=== PATIENT | female | born 1980 | race African-American/Black ===

== ENCOUNTER 2017-01-17 23:48 | Inpatient (IN) | payer OTHER ==
[2017-01-18 01:47] VITALS: BMI 28.0
--- NOTE | 2017-01-18 01:54 | HP ---
COWS - Scale Resting Pulse: 0= [place] 80 or Below Sweatin=Flushed/Facial Moisture Restless Observation: 3= Extraneous Movement Pupil Size: 2= Moderately Dilated Bone or Joint Aches: 2= Severe Diffuse Aches Runny Nose/ Eye Tearin= Runny Nose/Eyes GI Upset > 30mins: 3= Vomiting/Diarrhea Tremor Observation: 2= Slight Tremor Visible Yawning Observation: 2= >3x During Session Anxiety or Irritability: 2=Irritable/Anxious Goose Flesh Skin: 0=Smooth Skin COWS Score: 20 CIWA Score - CIWA Score Nausea/Vomitin Muscle Tremors: 3 Anxiety: 3 Agitation: 3 Paroxysmal Sweats: 2 Orientation: 0-Oriented Tacttile Disturbances: 2-Mild Itch/Numbness/Burn Auditory Disturbances: 2-Mild Harshness/Frighten Visual Disturbances: 2-Mild Sensitivity Headache: 2-Mild CIWA-Ar Total Score: 22 Admission ROS BHS - HPI Chief Complaint: i need help to stop using heroin,alcohol,xanax,marijuana Allergies/Adverse Reactions: Allergies Allergy/AdvReac Type Severity Reaction Status Date / Time No Known Allergies Allergy Verified 01/18/17 01:37 History of Present Illness: this 36 years old female with heroin,alcohol,xanax,marijuana dependence,seeking detox,last treatment in [place] 2005 hepatitis c nicotine dependence longest sobriety 5 years Exam Limitations: No Limitations - Ebola screening Have you traveled outside of the country in the last 21 days: No (N) Have you had contact with anyone from an Ebola affected area: No Do you have a fever: No - Review of Systems Constitutional: Chills, Diaphoresis, Loss of Appetite, Malaise, Night Sweats, Changes in sleep, Weakness EENT: reports: Nose Congestion Respiratory: reports: No Symptoms reported Cardiac: reports: No Symptoms Reported GI: reports: Diarrhea, Nausea, Vomiting, Abdominal cramping : reports: No Symptoms Reported Musculoskeletal: reports: Back Pain, Joint Pain, Muscle Pain Integumentary: reports: Dryness Neuro: reports: No Symptoms reported Endocrine: reports: No Symptoms Reported Hematology: reports: No Symptoms Reported Psychiatric: reports: No Sypmtoms Reported, Judgement Intact, Mood/Affect Appropiate, Anxious (insomnia) Patient History - Patient Medical History Hx Anemia: No Hx Asthma: No Hx Chronic Obstructive Pulmonary Disease (COPD): No Hx Cancer: No Hx Cardiac Disorders: No Hx Hypertension: No Hx Hypercholesterolemia: No Hx Pacemaker: No HX Cerebrovascular Accident: No Hx Seizures: No Hx Dementia: No Hx Diabetes: No Hx Gastrointestinal Disorders: No Hx Liver Disease: No Hx Genitourinary Disorders: No Hx Sexually Transmitted Disorders: No Hx Renal Disease (ESRD): No Hx Thyroid Disease: No Hx Human Immunodeficiency Virus (HIV): No (last in 01/11 negative) Hx Hepatitis C: Yes (no treatment) Hx Depression: Yes Hx Suicide Attempt: No Hx Bipolar Disorder: No Hx Schizophrenia: No Other Medical History: no suicidal,no homicidal - Patient Surgical History Past Surgical History: Yes Hx Neurologic Surgery: No Hx Cataract Extraction: No Hx Cardiac Surgery: No Hx Lung Surgery: No Hx Breast Surgery: No Hx Breast Biopsy: No Hx Abdominal Surgery: No Hx Appendectomy: No Hx Cholecystectomy: No Hx Genitourinary Surgery: No Hx Section: Yes (2 last 12) Hx Orthopedic Surgery: No Hx Hysterectomy: No Anesthesia Reaction: No - PPD History Previous Implant?: Yes Documented Results: Positive w/o proof Implanted On Prior R Admission?: No PPD to be Administered?: No - Reproductive History Patient is a Female of Child Bearing Age (11 -55 yrs old): Yes Last Menstrual Period: 12/27/16 Patient : No - Smoking Cessation Smoking history: Current every day smoker Have you smoked in the past 12 months: Yes Aproximately how many cigarettes per day: 10 Hx Chewing Tobacco Use: No Initiated information on smoking cessation: Yes 'Breaking Loose' booklet given: 01/18/17 - Substances Abused Alcohol Route: Oral Frequency: Daily Amount used: 6 cans Age of first use: 13 Date of Last Use: 01/17/17 Heroin Route: Injection Frequency: Daily Amount used: 10 bags Age of first use: 26 Date of Last Use: 01/17/17 Alprazolam (Xanax) Route: Oral Frequency: Daily Amount used: 3-4 pills Age of first use: 17 Date of Last Use: 01/15/17 Family Disease History - Family Disease History Family Disease History: Other: Father (alcohol,), Mother (mental problem ) Admission Physical Exam BHS - Vital Signs Vital Signs: Vital Signs - 24 hr 01/18/17 01:42 Temperature 98.7 F Pulse Rate 78 Respiratory 20 Rate Blood Pressure 115/70 - Physical General Appearance: Yes: Moderate Distress, Tremorous, Irritable, Sweating, Anxious HEENTM: Yes: Normal ENT Inspection, Normal Voice, HERNANDEZ, Pharynx Normal Respiratory: Yes: Lungs Clear, Normal Breath Sounds, No Respiratory Distress Neck: Yes: Within Normal Limits, Supple, Trachea in good position Breast: Yes: Breast Exam Deferred Cardiology: Yes: Within Normal Limits, Regular Rhythm, Regular Rate, S1, S2 Abdominal: Yes: Within Normal Limits, Normal Bowel Sounds, Non Tender, Flat, Soft Genitourinary: Yes: Within Normal Limits Back: Yes: Muscle Spasm Musculoskeletal: Yes: full range of Motion, Back pain, Joint Stiffness, Muscle Pain Extremities: Yes: Tremors Neurological: Yes: skeins yarn examiner II-XII NML intact, Fully Oriented, Alert, Motor Strength 5/5 Integumentary: Yes: Dry Lymphatic: Yes: Within Normal Limits - Diagnostic (1) Opioid dependence with withdrawal Current Visit: Yes Status: Acute (2) Alcohol dependence with uncomplicated withdrawal Current Visit: Yes Status: Acute (3) Uncomplicated sedative, hypnotic or anxiolytic withdrawal Current Visit: Yes Status: Acute (4) Cannabis dependence Current Visit: Yes Status: Acute (5) Hepatitis C Current Visit: Yes Status: Acute (6) Nicotine dependence Current Visit: Yes Status: Acute (7) Insomnia secondary to anxiety Current Visit: Yes Status: Acute (8) Positive PPD Current Visit: Yes Status: Acute Cleared for Admission [facility] - Detox or Rehab [facility] Level of Care: Medically Managed Detox Regimen/Protocol: Methadone/Librium [facility] Breath Alcohol Content Breath Alcohol Content: 0 Urine Pregancy Test - Result Urine Test Results: Negative- NO Line Present Urine Drug Screen - Results Drug Screen Negative: No Urine Drug Screen Results: THC-Marijuana, OPI-Opiates, BZO-Benzodiazepines, MTD- Methadone
[2017-01-18] MEDS ORDERED: MENTHOL/PHENOL 1 EACH UD MM PRN (02:05)
[2017-01-18] MEDS ORDERED: METHADONE HCL 10 MG TABLET (FOR DETOX USE ONLY) PO ONE ×5 (02:05→22:00)
[2017-01-18] MEDS ORDERED: P-EPHED 60MG/TRIPROLIDI 2.5MG TABLET PO PRN (02:05)
[2017-01-18] MEDS ORDERED: MAGNESIUM CITRATE 300 ML BOTTLE PO PRN (02:05)
[2017-01-18] MEDS ORDERED: ACETAMINOPHEN 325 MG TABLET (FP) PO PRN (02:05)
[2017-01-18] MEDS ORDERED: LOPERAMIDE HCL 2 MG CAPSULE PO PRN (02:05)
[2017-01-18] MEDS ORDERED: IBUPROFEN 400 MG TABLET (FP) PO PRN (02:05)
[2017-01-18] MEDS ORDERED: MAG HYDROX/AL HYDROX/SIMETH 30 ML UNIT-DOSE CUP PO PRN (02:05)
[2017-01-18] MEDS ORDERED: MAGNESIUM HYDROX 2400MG/30ML ORAL SUSPENSION 30 ML CUP PO PRN (02:05)
[2017-01-18] MEDS ORDERED: guaiFENesin/D-METHORPHAN HB 10 ML UNIT-DOSE CUPS PO PRN (02:05)
[2017-01-18] MEDS ORDERED: chlordiazePOXIDE HCL 25 MG CAPSULE PO ONE (02:05)
[2017-01-18] MEDS ORDERED: chlordiazePOXIDE HCL 25 MG CAPSULE PO PRN ×2 (02:05→02:14)
[2017-01-18] MEDS ORDERED: chlordiazePOXIDE HCL 25 MG CAPSULE PO SCH (05:00)
[2017-01-18] MEDS: chlordiazePOXIDE HCL 25 MG CAPSULE PO SCH ×4 (05:20→22:49)
--- NOTE | 2017-01-18 10:18 | PN ---
S Progress Note Note: patient was admitted for opioid dependence,alcohol dependence and sedative dependence medically manage for methadone and librium regimen
[2017-01-18] MEDS: hydrOXYzine PAMOATE 25 MG CAPSULE (FP) PO PRN (10:21)
[2017-01-18] MEDS: PRENATAL VITAMINS W/ FOLIC ACID TABLET (FP) PO SCH (10:21)
[2017-01-18] MEDS: NICOTINE 21 MG/24 HOURS TOPICAL PATCH TD SCH (10:22)
[2017-01-18] MEDS ORDERED: FLU VACCINE QUAD 60 MCG/0.5 ML (MDV 17-18) IM ONE ×2 (12:00)
--- NOTE | 2017-01-18 15:17 | CONSULT ---
[facility] Psychiatric Consult - Data Date of interview: 01/18/17 Admission source: [facility] Identifying data: First admission to [facility] for this 36 y/o AA female seeking detox treatment on for alcohol,cocaine,heroin and marihuana.Patient is single,mother of two,homeless,unemployed and supported on welfare. Substance Abuse History: Discussed with the patient.Addictions are confirmed.Smoking history: Current every day smoker. Have you smoked in the past 12 months: Yes. Aproximately how many cigarettes per day: 10. Hx Chewing Tobacco Use: No. Initiated information on smoking cessation: Yes. 'Breaking Loose' booklet given: 01/18/17. - Substances Abused. Alcohol. Route: Oral. Frequency: Daily. Amount used: 6 cans. Age of first use: 13. Date of Last Use: 01/17/17. Heroin. Route: Injection. Frequency: Daily. Amount used: 10 bags. Age of first use: 26. Date of Last Use: 01/17/17. Alprazolam (Xanax). Route: Oral. Frequency: Daily. Amount used: 3-4 pills. Age of first use: 17. Date of Last Use: 01/15/17 Medical History: Hepatitis C. Psychiatric History: No reported history of psychiatric hospitalizations.Diagnoses endorsesd : MDD,Anxiety Disorder and PTSD.Patient reports that she dropped out of OPD care " a little over 18 months ago." Used to be on effexor,adderall,xanax and gabapentin.Ms Pizano denies hstory of suicide attempts. Physical/Sexual Abuse/Trauma History: Not discussed (patient's wish). Additional Comment: Urine Drug Screen Results: THC-Marijuana, OPI-Opiates, BZO- Benzodiazepines, MTD-Methadone.Noted. Mental Status Exam - Mental Status Exam Alert and Oriented to: Time, Place, Person Cognitive Function: Good Patient Appearance: Well Groomed Mood: Hopeful, Euthymic Affect: Appropriate, Normal Range Patient Behavior: Appropriate, Cooperative Speech Pattern: Clear Voice Loudness: Normal Thought Process: Intact, Goal Oriented Thought Disorder: Not Present Hallucinations: Denies Suicidal Ideation: Denies Homicidal Ideation: Denies Insight/Judgement: Poor Sleep: Well Appetite: Good Muscle strength/Tone: Normal Gait/Station: Normal Psychiatric Findings - Problem List ([place] 1, 2,3) (1) Alcohol dependence with uncomplicated withdrawal Current Visit: Yes Status: Acute (2) Cannabis dependence Current Visit: Yes Status: Acute (3) Opioid dependence with withdrawal Current Visit: Yes Status: Acute (4) Uncomplicated sedative, hypnotic or anxiolytic withdrawal Current Visit: Yes Status: Acute (5) Nicotine dependence Current Visit: Yes Status: Acute (6) Substance induced mood disorder Current Visit: Yes Status: Acute (7) Hepatitis C Current Visit: Yes Status: Acute (8) Positive PPD Current Visit: Yes Status: Acute - Initial Treatment Plan Initial Treatment Plan: Psychoeducation.Detoxification.Observation.
[2017-01-18 16:09] LABS: URINE APPEARANCE SLCLOUDY; URINE BILIRUBIN NEGATIVE (NEGATIVE); URINE BLOOD NEGATIVE (NEGATIVE); URINE COLOR YELLOW; URINE GLUCOSE (UA) NEGATIVE (NEGATIVE); URINE KETONE NEGATIVE (NEGATIVE); URINE NITRITE NEGATIVE (NEGATIVE); URINE PROTEIN NEGATIVE (NEGATIVE)
[2017-01-18 20:13] LABS: URINE LEUK ESTERASE Negative (NEGATIVE)
--- NOTE | 2017-01-18 20:26 | EKG ---
Test Reason : Blood Pressure : / mmHG Vent. Rate : 073 BPM Atrial Rate : 073 BPM P-R Int : 188 ms QRS Dur : 080 ms QT Int : 398 ms P-R-T Axes : 047 077 054 degrees QTc Int : 438 ms NORMAL SINUS RHYTHM NORMAL ECG NO PREVIOUS ECGS AVAILABLE Confirmed by CHANDRAKANT REAL MD ([id number]) on 01/18/2017 8:26:28 PM Referred By: Confirmed By:CHANDRAKANT REAL MD
[2017-01-18] MEDS: THIAMINE HCL 100 MG TABLET (FP) PO SCH (22:49)
[2017-01-19] MEDS ORDERED: chlordiazePOXIDE HCL 25 MG CAPSULE PO SCH (05:00)
[2017-01-19] MEDS: chlordiazePOXIDE HCL 25 MG CAPSULE PO SCH ×4 (05:19→22:43)
[2017-01-19 09:55] LABS: MCH 28.5 pg (25.7-33.7); MCHC 33.3 g/dl (32.0-36.0); MEAN CELL VOLUME 85.8 fl (80-96); MEAN PLT VOLUME 8.5 fl (7.5-11.1); PLATELET COUNT 184 K/MM3 (134-434); RDW 15.6 % (11.6-15.6); WHITE BLOOD COUNT 5.3 K/mm3 (4.0-10.0)
[2017-01-19] MEDS ORDERED: METHADONE HCL 5 MG TABLET (FOR DETOX USE ONLY) PO SCH ×2 (10:00)
[2017-01-19 10:06] LABS: ALBUMIN 2.9 g/dl (3.4-5.0); ANION GAP 7 (8-16); CALCIUM 8.1 mg/dL (8.5-10.1); CO2 26 mmol/L (21-32); CREATININE 0.6 mg/dL (0.55-1.02); GLUCOSE,RANDOM 93 mg/dL (74-106); SGOT/AST 16 U/L (15-37); SGPT/ALT 47 U/L (12-78)
[2017-01-19 10:08] LABS: ALK PHOS 186 U/L (45-117); BILIRUBIN,TOTAL 0.6 mg/dL (0.2-1.0); TOT PROT 6.3 g/dl (6.4-8.2)
[2017-01-19 10:12] LABS: SICKLE CELL SCREEN NEGATIVE (NEGATIVE)
[2017-01-19] MEDS: PRENATAL VITAMINS W/ FOLIC ACID TABLET (FP) PO SCH (10:34)
[2017-01-19] MEDS: NICOTINE 21 MG/24 HOURS TOPICAL PATCH TD SCH (10:34)
--- NOTE | 2017-01-19 11:28 | PN ---
S CIWA - CIWA Score Nausea/Vomitin Muscle Tremors: 3 Anxiety: 3 Agitation: 2 Paroxysmal Sweats: 1-Minimal Palms Moist Orientation: 0-Oriented Tacttile Disturbances: 1-Very Mild Itch/Numbness Auditory Disturbances: 1-Very Mild Visual Disturbances: 0-None Headache: 2-Mild CIWA-Ar Total Score: 16 BHS COWS - Scale Resting Pulse: 0= [place] 80 or Below Sweatin= Chills/Flushing Restless Observation: 3= Extraneous Movement Pupil Size: 1= Pupils >than Normal Bone or Joint Aches: 2= Severe Diffuse Aches Runny Nose/ Eye Tearin= Nasal Congestion GI Upset > 30mins: 2= Nausea/Diarrhea Tremor Observation of Outstretched Hands: 2= Slight Tremor Visible Yawning Observation: 1= 1-2x During Session Anxiety or Irritability: 2=Irritable/Anxious Goose Flesh Skin: 0=Smooth Skin COWS Score: 15 BHS Progress Note (SOAP) Subjective: alert,irritable,anxious,interrupted sleep,tremor Objective: 01/19/17 11:26 Vital Signs Temperature 96.9 F L 01/19/17 10:00 Pulse Rate 72 01/19/17 10:00 Respiratory Rate 16 01/19/17 10:00 Blood Pressure 120/70 01/19/17 10:00 O2 Sat by Pulse Oximetry (%) Laboratory Last Values WBC 5.3 K/mm3 (4.0-10.0) 01/19/17 07:15 RBC 4.07 M/mm3 (3.60-5.2) 01/19/17 07:15 Hgb 11.6 GM/dL (10.7-15.3) 01/19/17 07:15 Hct 34.9 % (32.4-45.2) 01/19/17 07:15 MCV 85.8 fl (80-96) 01/19/17 07:15 MCH 28.5 pg (25.7-33.7) 01/19/17 07:15 MCHC 33.3 g/dl (32.0-36.0) 01/19/17 07:15 RDW 15.6 % (11.6-15.6) 01/19/17 07:15 Plt Count 184 K/MM3 (134-434) 01/19/17 07:15 MPV 8.5 fl (7.5-11.1) 01/19/17 07:15 Sickle Cell Screen Negative (NEGATIVE) 01/19/17 07:15 Sodium 142 mmol/L (136-145) 01/19/17 07:15 Potassium 4.0 mmol/L (3.5-5.1) 01/19/17 07:15 Chloride 109 mmol/L (98-107) H 01/19/17 07:15 Carbon Dioxide 26 mmol/L (21-32) 01/19/17 07:15 Anion Gap 7 (8-16) L 01/19/17 07:15 BUN 8 mg/dL (7-18) 01/19/17 07:15 Creatinine 0.6 mg/dL (0.55-1.02) 01/19/17 07:15 Creat Clearance w eGFR > 60 (>60) 01/19/17 07:15 Random Glucose 93 mg/dL (74-106) 01/19/17 07:15 Calcium 8.1 mg/dL (8.5-10.1) L 01/19/17 07:15 Total Bilirubin 0.6 mg/dL (0.2-1.0) 01/19/17 07:15 AST 16 U/L (15-37) 01/19/17 07:15 ALT 47 U/L (12-78) 01/19/17 07:15 Alkaline Phosphatase 186 U/L (45-117) H 01/19/17 07:15 Total Protein 6.3 g/dl (6.4-8.2) L 01/19/17 07:15 Albumin 2.9 g/dl (3.4-5.0) L 01/19/17 07:15 Urine Color Yellow 01/18/17 10:30 Urine Appearance Slcloudy 01/18/17 10:30 Urine pH 7.0 (5.0-8.0) 01/18/17 10:30 Ur Specific [place] 1.015 (1.005-1.025) 01/18/17 10:30 Urine Protein Negative (NEGATIVE) 01/18/17 10:30 Urine Glucose (UA) Negative (NEGATIVE) 01/18/17 10:30 Urine Ketones Negative (NEGATIVE) 01/18/17 10:30 Urine Blood Negative (NEGATIVE) 01/18/17 10:30 Urine Nitrite Negative (NEGATIVE) 01/18/17 10:30 Urine Bilirubin Negative (NEGATIVE) 01/18/17 10:30 Urine Urobilinogen 2.0 mg/dL (0.2-1.0) H 01/18/17 10:30 Ur Leukocyte Esterase Negative (NEGATIVE) 01/18/17 10:30 RPR Titer Nonreactive (NONREACTIVE) 01/19/17 07:15 Assessment: 01/19/17 11:27 withdrawal symptom Plan: continue detox
[2017-01-19] MEDS: diphenhydrAMINE HCL 50 MG CAPSULE PO PRN (22:43)
[2017-01-19] MEDS: THIAMINE HCL 100 MG TABLET (FP) PO SCH (22:43)
[2017-01-20] MEDS ORDERED: chlordiazePOXIDE 5 MG CAPSULE PO SCH (05:00)
[2017-01-20] MEDS: chlordiazePOXIDE 5 MG CAPSULE PO SCH ×4 (07:36→22:31)
[2017-01-20] MEDS ORDERED: METHADONE HCL 5 MG TABLET (FOR DETOX USE ONLY) PO SCH (10:00)
--- NOTE | 2017-01-20 10:17 | PN ---
S CIWA - CIWA Score Nausea/Vomitin Muscle Tremors: 3 Anxiety: 3 Agitation: 2 Paroxysmal Sweats: 1-Minimal Palms Moist Orientation: 0-Oriented Tacttile Disturbances: 1-Very Mild Itch/Numbness Auditory Disturbances: 1-Very Mild Visual Disturbances: 0-None Headache: 2-Mild CIWA-Ar Total Score: 16 BHS COWS - Scale Resting Pulse: 0= [place] 80 or Below Sweatin= Chills/Flushing Restless Observation: 3= Extraneous Movement Pupil Size: 1= Pupils >than Normal Bone or Joint Aches: 2= Severe Diffuse Aches Runny Nose/ Eye Tearin= Nasal Congestion GI Upset > 30mins: 3= Vomiting/Diarrhea Tremor Observation of Outstretched Hands: 2= Slight Tremor Visible Yawning Observation: 1= 1-2x During Session Anxiety or Irritability: 2=Irritable/Anxious Goose Flesh Skin: 0=Smooth Skin COWS Score: 16 BHS Progress Note (SOAP) Subjective: alert,irritable,anxious,interrupted sleep,pain in the body and back Objective: 01/20/17 10:16 Vital Signs Temperature 96.6 F L 01/20/17 09:55 Pulse Rate 65 01/20/17 09:55 Respiratory Rate 18 01/20/17 09:55 Blood Pressure 117/66 01/20/17 09:55 O2 Sat by Pulse Oximetry (%) Laboratory Last Values WBC 5.3 K/mm3 (4.0-10.0) 01/19/17 07:15 RBC 4.07 M/mm3 (3.60-5.2) 01/19/17 07:15 Hgb 11.6 GM/dL (10.7-15.3) 01/19/17 07:15 Hct 34.9 % (32.4-45.2) 01/19/17 07:15 MCV 85.8 fl (80-96) 01/19/17 07:15 MCH 28.5 pg (25.7-33.7) 01/19/17 07:15 MCHC 33.3 g/dl (32.0-36.0) 01/19/17 07:15 RDW 15.6 % (11.6-15.6) 01/19/17 07:15 Plt Count 184 K/MM3 (134-434) 01/19/17 07:15 MPV 8.5 fl (7.5-11.1) 01/19/17 07:15 Sickle Cell Screen Negative (NEGATIVE) 01/19/17 07:15 Sodium 142 mmol/L (136-145) 01/19/17 07:15 Potassium 4.0 mmol/L (3.5-5.1) 01/19/17 07:15 Chloride 109 mmol/L (98-107) H 01/19/17 07:15 Carbon Dioxide 26 mmol/L (21-32) 01/19/17 07:15 Anion Gap 7 (8-16) L 01/19/17 07:15 BUN 8 mg/dL (7-18) 01/19/17 07:15 Creatinine 0.6 mg/dL (0.55-1.02) 01/19/17 07:15 Creat Clearance w eGFR > 60 (>60) 01/19/17 07:15 Random Glucose 93 mg/dL (74-106) 01/19/17 07:15 Calcium 8.1 mg/dL (8.5-10.1) L 01/19/17 07:15 Total Bilirubin 0.6 mg/dL (0.2-1.0) 01/19/17 07:15 AST 16 U/L (15-37) 01/19/17 07:15 ALT 47 U/L (12-78) 01/19/17 07:15 Alkaline Phosphatase 186 U/L (45-117) H 01/19/17 07:15 Total Protein 6.3 g/dl (6.4-8.2) L 01/19/17 07:15 Albumin 2.9 g/dl (3.4-5.0) L 01/19/17 07:15 Urine Color Yellow 01/18/17 10:30 Urine Appearance Slcloudy 01/18/17 10:30 Urine pH 7.0 (5.0-8.0) 01/18/17 10:30 Ur Specific [place] 1.015 (1.005-1.025) 01/18/17 10:30 Urine Protein Negative (NEGATIVE) 01/18/17 10:30 Urine Glucose (UA) Negative (NEGATIVE) 01/18/17 10:30 Urine Ketones Negative (NEGATIVE) 01/18/17 10:30 Urine Blood Negative (NEGATIVE) 01/18/17 10:30 Urine Nitrite Negative (NEGATIVE) 01/18/17 10:30 Urine Bilirubin Negative (NEGATIVE) 01/18/17 10:30 Urine Urobilinogen 2.0 mg/dL (0.2-1.0) H 01/18/17 10:30 Ur Leukocyte Esterase Negative (NEGATIVE) 01/18/17 10:30 RPR Titer Nonreactive (NONREACTIVE) 01/19/17 07:15 Assessment: 01/20/17 10:17 withdrawal symptom Plan: continue detox
[2017-01-20] MEDS: NICOTINE 21 MG/24 HOURS TOPICAL PATCH TD SCH (10:30)
[2017-01-20] MEDS: PRENATAL VITAMINS W/ FOLIC ACID TABLET (FP) PO SCH (10:30)
[2017-01-20] MEDS: METHADONE HCL 5 MG TABLET (FOR DETOX USE ONLY) PO SCH (10:30)
[2017-01-20] MEDS: NICOTINE POLACRILEX 2 MG GUM BC PRN ×2 (19:42→22:32)
[2017-01-20] MEDS: THIAMINE HCL 100 MG TABLET (FP) PO SCH (22:31)
[2017-01-20] MEDS: diphenhydrAMINE HCL 50 MG CAPSULE PO PRN (22:31)
[2017-01-21] MEDS ORDERED: chlordiazePOXIDE HCL 10 MG CAPSULE PO SCH (05:00)
[2017-01-21] MEDS: chlordiazePOXIDE HCL 10 MG CAPSULE PO SCH ×4 (05:35→22:31)
[2017-01-21] MEDS: NICOTINE 21 MG/24 HOURS TOPICAL PATCH TD SCH (10:27)
[2017-01-21] MEDS: PRENATAL VITAMINS W/ FOLIC ACID TABLET (FP) PO SCH (10:27)
[2017-01-21] MEDS: METHADONE HCL 5 MG TABLET (FOR DETOX USE ONLY) PO SCH (10:27)
--- NOTE | 2017-01-21 11:12 | PN ---
BHS Progress Note (SOAP) Subjective: ALERT,IRRITABLE,ANXIOUS,INTERRUPTED SLEEP,PAIN IN THE BODY Objective: 01/21/17 11:11 Vital Signs Temperature 98.6 F 01/21/17 10:00 Pulse Rate 76 01/21/17 10:00 Respiratory Rate 20 01/21/17 10:00 Blood Pressure 111/55 01/21/17 10:00 O2 Sat by Pulse Oximetry (%) Assessment: 01/21/17 11:12 WITHDRAWAL SYMPTOM Plan: CONTINUE DETOX
[2017-01-21] MEDS: NICOTINE POLACRILEX 2 MG GUM BC PRN ×2 (18:13→22:33)
[2017-01-21] MEDS: diphenhydrAMINE HCL 50 MG CAPSULE PO PRN (22:30)
[2017-01-21] MEDS: THIAMINE HCL 100 MG TABLET (FP) PO SCH (22:30)
[2017-01-22] MEDS ORDERED: METHADONE HCL 10 MG TABLET (FOR DETOX USE ONLY) PO SCH ×2 (10:00)
[2017-01-22] MEDS: NICOTINE 21 MG/24 HOURS TOPICAL PATCH TD SCH (10:19)
[2017-01-22] MEDS: PRENATAL VITAMINS W/ FOLIC ACID TABLET (FP) PO SCH (10:19)
[2017-01-22] MEDS: hydrOXYzine PAMOATE 25 MG CAPSULE (FP) PO PRN (10:20)
--- NOTE | 2017-01-22 11:33 | PN ---
S Progress Note (SOAP) Subjective: ALERT,IRRITABLE,INTERRUPTED SLEEP Objective: 01/22/17 11:32 Vital Signs Temperature 96.7 F L 01/22/17 10:18 Pulse Rate 82 01/22/17 10:18 Respiratory Rate 18 01/22/17 10:18 Blood Pressure 109/64 01/22/17 10:18 O2 Sat by Pulse Oximetry (%) Assessment: 01/22/17 11:32 WITHDRAWAL SYMPTOM Plan: CONTINUE DETOX,DISCHARGE IN AM
[2017-01-22] MEDS: NICOTINE POLACRILEX 2 MG GUM BC PRN ×2 (17:29→22:15)
[2017-01-22] MEDS: diphenhydrAMINE HCL 50 MG CAPSULE PO PRN (22:14)
[2017-01-22] MEDS: THIAMINE HCL 100 MG TABLET (FP) PO SCH (22:15)
[2017-01-23] MEDS ORDERED: METHADONE HCL 10 MG TABLET (FOR DETOX USE ONLY) PO SCH ×2 (06:00)
[2017-01-23] MEDS ORDERED: METHADONE HCL 5 MG TABLET (FOR DETOX USE ONLY) PO SCH (06:30)
[2017-01-23] MEDS: PRENATAL VITAMINS W/ FOLIC ACID TABLET (FP) PO SCH (10:13)
[2017-01-23] MEDS: NICOTINE 21 MG/24 HOURS TOPICAL PATCH TD SCH (10:13)
[2017-01-23] MEDS: NICOTINE POLACRILEX 2 MG GUM BC PRN (10:15)
--- NOTE | 2017-01-23 10:28 | DS ---
[facility] Detox Discharge Summary Admission Date: 01/18/17 Discharge Date: 01/23/17 - History Present History: Alcohol Dependence, Cocaine Dependence, Opioid Dependence, Sedative Dependence Additional Comments: FOLLOW UP WITH AFTER CARE PROGRAM ARRANGEMENT Pertinent Past History: HEPATITIS C NICOTINE DEPENDENCE ANXIETY,INSOMNIA POSITIVE PPD - Physical Exam Results Vital Signs: Vital Signs Temperature 98.1 F 01/23/17 06:26 Pulse Rate 71 01/23/17 06:26 Respiratory Rate 18 01/23/17 06:26 Blood Pressure 108/60 01/23/17 06:26 O2 Sat by Pulse Oximetry (%) Pertinent Admission Physical Exam Findings: WITHDRAWAL FINDING - Treatment Hospital Course: Detox Protocol Followed, Detoxed Safely, Responded well, Discharged Condition Good, Rehab Referral Accepted Patient has Accepted a Rehab Referral to: [facility] - Medication Discharge Medications: Ambulatory Orders NK [No Known Home Medication] 01/18/17 - Diagnosis (1) Opioid dependence with withdrawal Current Visit: Yes Status: Acute (2) Alcohol dependence with uncomplicated withdrawal Current Visit: Yes Status: Acute (3) Uncomplicated sedative, hypnotic or anxiolytic withdrawal Current Visit: Yes Status: Acute (4) Cannabis dependence Current Visit: Yes Status: Acute (5) Hepatitis C Current Visit: Yes Status: Acute (6) Nicotine dependence Current Visit: Yes Status: Acute (7) Insomnia secondary to anxiety Current Visit: Yes Status: Acute (8) Positive PPD Current Visit: Yes Status: Acute - AMA Did Patient Leave Against Medical Advice: No
[2017-01-23 11:01] VITALS: BP 128/82; PULSE 67; TEMP 97.8
== END 2017-01-23 11:15 | disposition other institution (70) | DRG 773 ==
LOC: YASAS 23:48 → Y6N 01-18 01:10
PROVIDERS: ADMIT Internal Medicine; ATTEND Internal Medicine
PROC: HZ2ZZZZ Detoxification Services for Substance Abuse Treatment (ICD-10-PCS; principal; 2017-01-18)
DX: F11.23 Opioid dependence with withdrawal (principal); F13.230 Sedative, hypnotic or anxiolytic dependence with withdrawal, uncomplicated; F10.230 Alcohol dependence with withdrawal, uncomplicated; F12.20 Cannabis dependence, uncomplicated; F17.210 Nicotine dependence, cigarettes, uncomplicated; F51.05 Insomnia due to other mental disorder; B18.2 Chronic viral hepatitis C; R76.11 Nonspecific reaction to tuberculin skin test without active tuberculosis
CPT/HCPCS: 36415; 71010-TC; 80053; 81003; 85027; 85660; 86593; 90688; 93005; 93010; G0008

== ENCOUNTER 2017-01-23 11:21 | Inpatient (IN) | payer OTHER ==
[2017-01-23 13:03] VITALS: BMI 27.9
[2017-01-23] MEDS ORDERED: P-EPHED 60MG/TRIPROLIDI 2.5MG TABLET PO PRN (13:27)
[2017-01-23] MEDS ORDERED: LOPERAMIDE HCL 2 MG CAPSULE PO PRN (13:27)
[2017-01-23] MEDS ORDERED: guaiFENesin/D-METHORPHAN HB 10 ML UNIT-DOSE CUPS PO PRN (13:27)
[2017-01-23] MEDS ORDERED: MAG HYDROX/AL HYDROX/SIMETH 30 ML UNIT-DOSE CUP PO PRN (13:27)
[2017-01-23] MEDS ORDERED: MENTHOL/PHENOL 1 EACH UD MM PRN (13:27)
[2017-01-23] MEDS ORDERED: MAGNESIUM CITRATE 300 ML BOTTLE PO PRN (13:27)
[2017-01-23] MEDS ORDERED: ACETAMINOPHEN 325 MG TABLET (FP) PO PRN (13:27)
--- NOTE | 2017-01-23 13:31 | HP ---
[facility] Re[facility] Assess/Revision - Admission History Admitted to Rehab from: [facility] [place] Date of Admission to Rehab: 01/23/17 - Vital signs Vital Signs: Vital Signs Period Temp Pulse Resp BP Sys/Alarcon Pulse Ox Last 24 Hr 98 F 84 19 106/58 - Findings Detox History & Physical reviewed: Yes Concur with findings: Yes Comments/Additional Findings: FOR REHAB PROTOCOL Inpatient Rehab Admission - Initial Determination Are CD services needed?: Yes Free of communicable disease: Yes Not in need of hospitalization: Yes - Rehab Admission Criteria Previous failed treatment: Yes Poor recovery environment: Yes Comorbidities: Yes Patient is meeting Inpatient Rehab admission criteria:: Yes
[2017-01-23] MEDS: NICOTINE POLACRILEX 2 MG GUM BUC PRN (17:38)
[2017-01-23] MEDS: diphenhydrAMINE HCL 50 MG CAPSULE PO PRN (21:26)
[2017-01-23] MEDS: THIAMINE HCL 100 MG TABLET (FP) PO SCH (21:26)
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
[2017-01-24] MEDS: NICOTINE 21 MG/24 HOURS TOPICAL PATCH TD SCH (09:54)
[2017-01-24] MEDS: PRENATAL VITAMINS W/ FOLIC ACID TABLET (FP) PO SCH (09:54)
[2017-01-24] MEDS: hydrOXYzine PAMOATE 50 MG CAPSULE (FP) PO PRN (09:54)
[2017-01-24] MEDS: NICOTINE POLACRILEX 2 MG GUM BUC PRN ×2 (09:55→17:35)
[2017-01-24] MEDS: THIAMINE HCL 100 MG TABLET (FP) PO SCH (21:24)
[2017-01-24] MEDS: SUVOREXANT 10 MG TABLET PO PRN (21:25)
[2017-01-25] MEDS: PRENATAL VITAMINS W/ FOLIC ACID TABLET (FP) PO SCH (10:01)
[2017-01-25] MEDS: hydrOXYzine PAMOATE 50 MG CAPSULE (FP) PO PRN (10:02)
[2017-01-25] MEDS: NICOTINE POLACRILEX 2 MG GUM BUC PRN (10:03)
[2017-01-25] MEDS: NICOTINE 21 MG/24 HOURS TOPICAL PATCH TD SCH (10:03)
[2017-01-25] MEDS: THIAMINE HCL 100 MG TABLET (FP) PO SCH (21:10)
[2017-01-25] MEDS: SUVOREXANT 10 MG TABLET PO PRN (21:11)
[2017-01-25] MEDS: IBUPROFEN 400 MG TABLET (FP) PO PRN (23:18)
[2017-01-26] MEDS: NICOTINE 21 MG/24 HOURS TOPICAL PATCH TD SCH (09:55)
[2017-01-26] MEDS: PRENATAL VITAMINS W/ FOLIC ACID TABLET (FP) PO SCH (09:55)
[2017-01-26] MEDS: hydrOXYzine PAMOATE 50 MG CAPSULE (FP) PO PRN (10:06)
[2017-01-26] MEDS: NICOTINE POLACRILEX 2 MG GUM BUC PRN (15:47)
[2017-01-26] MEDS: diphenhydrAMINE HCL 50 MG CAPSULE PO PRN (21:32)
[2017-01-26] MEDS: IBUPROFEN 400 MG TABLET (FP) PO PRN (21:32)
[2017-01-26] MEDS: THIAMINE HCL 100 MG TABLET (FP) PO SCH (21:32)
[2017-01-26] MEDS: SUVOREXANT 10 MG TABLET PO PRN (22:19)
[2017-01-27] MEDS: PRENATAL VITAMINS W/ FOLIC ACID TABLET (FP) PO SCH (10:05)
[2017-01-27] MEDS: NICOTINE 21 MG/24 HOURS TOPICAL PATCH TD SCH (10:05)
[2017-01-27] MEDS: hydrOXYzine PAMOATE 50 MG CAPSULE (FP) PO PRN (10:05)
[2017-01-27] MEDS: NICOTINE POLACRILEX 2 MG GUM BUC PRN ×2 (10:06→18:05)
[2017-01-27] MEDS: IBUPROFEN 400 MG TABLET (FP) PO PRN ×2 (10:23→18:04)
[2017-01-27] MEDS: THIAMINE HCL 100 MG TABLET (FP) PO SCH (21:53)
[2017-01-27] MEDS: diphenhydrAMINE HCL 50 MG CAPSULE PO PRN (21:53)
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
[2017-01-28] MEDS: IBUPROFEN 400 MG TABLET (FP) PO PRN ×3 (10:39→23:10)
[2017-01-28] MEDS: PRENATAL VITAMINS W/ FOLIC ACID TABLET (FP) PO SCH (10:39)
[2017-01-28] MEDS: hydrOXYzine PAMOATE 50 MG CAPSULE (FP) PO PRN (10:39)
[2017-01-28] MEDS: NICOTINE 21 MG/24 HOURS TOPICAL PATCH TD SCH (10:41)
[2017-01-28] MEDS: THIAMINE HCL 100 MG TABLET (FP) PO SCH (21:27)
[2017-01-28] MEDS: diphenhydrAMINE HCL 50 MG CAPSULE PO PRN (21:28)
[2017-01-29] MEDS: NICOTINE 21 MG/24 HOURS TOPICAL PATCH TD SCH (09:43)
[2017-01-29] MEDS: PRENATAL VITAMINS W/ FOLIC ACID TABLET (FP) PO SCH (09:43)
[2017-01-29] MEDS: IBUPROFEN 400 MG TABLET (FP) PO PRN ×2 (09:44→21:57)
[2017-01-29] MEDS: hydrOXYzine PAMOATE 50 MG CAPSULE (FP) PO PRN (09:44)
[2017-01-29] MEDS: THIAMINE HCL 100 MG TABLET (FP) PO SCH (21:57)
[2017-01-30] MEDS: PRENATAL VITAMINS W/ FOLIC ACID TABLET (FP) PO SCH (09:52)
[2017-01-30] MEDS: hydrOXYzine PAMOATE 50 MG CAPSULE (FP) PO PRN ×2 (09:52→21:31)
[2017-01-30] MEDS: NICOTINE 21 MG/24 HOURS TOPICAL PATCH TD SCH (09:52)
[2017-01-30] MEDS: THIAMINE HCL 100 MG TABLET (FP) PO SCH (21:30)
[2017-01-31] MEDS: NICOTINE POLACRILEX 2 MG GUM BUC PRN (10:10)
[2017-01-31] MEDS: PRENATAL VITAMINS W/ FOLIC ACID TABLET (FP) PO SCH (10:10)
[2017-01-31] MEDS: NICOTINE 21 MG/24 HOURS TOPICAL PATCH TD SCH (10:10)
[2017-01-31] MEDS: hydrOXYzine PAMOATE 50 MG CAPSULE (FP) PO PRN ×2 (10:11→21:38)
[2017-01-31] MEDS: MAGNESIUM HYDROX 2400MG/30ML ORAL SUSPENSION 30 ML CUP PO PRN (18:01)
[2017-01-31] MEDS: THIAMINE HCL 100 MG TABLET (FP) PO SCH (21:37)
[2017-02-01] MEDS: PRENATAL VITAMINS W/ FOLIC ACID TABLET (FP) PO SCH (10:07)
[2017-02-01] MEDS: NICOTINE 21 MG/24 HOURS TOPICAL PATCH TD SCH (10:07)
[2017-02-01] MEDS: hydrOXYzine PAMOATE 50 MG CAPSULE (FP) PO PRN ×2 (10:09→21:32)
[2017-02-01] MEDS: THIAMINE HCL 100 MG TABLET (FP) PO SCH (21:32)
[2017-02-02] MEDS: NICOTINE 21 MG/24 HOURS TOPICAL PATCH TD SCH (10:02)
[2017-02-02] MEDS: PRENATAL VITAMINS W/ FOLIC ACID TABLET (FP) PO SCH (10:02)
[2017-02-02] MEDS: NICOTINE POLACRILEX 2 MG GUM BUC PRN (10:03)
[2017-02-02] MEDS: hydrOXYzine PAMOATE 50 MG CAPSULE (FP) PO PRN ×2 (10:03→21:29)
[2017-02-02] MEDS: THIAMINE HCL 100 MG TABLET (FP) PO SCH (21:29)
[2017-02-03] MEDS: NICOTINE 21 MG/24 HOURS TOPICAL PATCH TD SCH (10:53)
[2017-02-03] MEDS: PRENATAL VITAMINS W/ FOLIC ACID TABLET (FP) PO SCH (10:54)
[2017-02-03] MEDS: hydrOXYzine PAMOATE 50 MG CAPSULE (FP) PO PRN (10:54)
[2017-02-03] MEDS: diphenhydrAMINE HCL 50 MG CAPSULE PO PRN (21:57)
[2017-02-03] MEDS: THIAMINE HCL 100 MG TABLET (FP) PO SCH (21:57)
[2017-02-04] MEDS: NICOTINE 21 MG/24 HOURS TOPICAL PATCH TD SCH (10:04)
[2017-02-04] MEDS: hydrOXYzine PAMOATE 50 MG CAPSULE (FP) PO PRN (10:04)
[2017-02-04] MEDS: PRENATAL VITAMINS W/ FOLIC ACID TABLET (FP) PO SCH (10:04)
[2017-02-04] MEDS: NICOTINE POLACRILEX 2 MG GUM BUC PRN (10:05)
[2017-02-04] MEDS: THIAMINE HCL 100 MG TABLET (FP) PO SCH (21:38)
[2017-02-04] MEDS: diphenhydrAMINE HCL 50 MG CAPSULE PO PRN (21:39)
[2017-02-05] MEDS: NICOTINE 21 MG/24 HOURS TOPICAL PATCH TD SCH (10:07)
[2017-02-05] MEDS: PRENATAL VITAMINS W/ FOLIC ACID TABLET (FP) PO SCH (10:07)
[2017-02-05] MEDS: hydrOXYzine PAMOATE 50 MG CAPSULE (FP) PO PRN (10:08)
[2017-02-05] MEDS: diphenhydrAMINE HCL 50 MG CAPSULE PO PRN (21:35)
[2017-02-05] MEDS: THIAMINE HCL 100 MG TABLET (FP) PO SCH (21:35)
[2017-02-06] MEDS: NICOTINE 21 MG/24 HOURS TOPICAL PATCH TD SCH (09:55)
[2017-02-06] MEDS: hydrOXYzine PAMOATE 50 MG CAPSULE (FP) PO PRN ×2 (09:55→21:22)
[2017-02-06] MEDS: MAGNESIUM HYDROX 2400MG/30ML ORAL SUSPENSION 30 ML CUP PO PRN (09:55)
[2017-02-06] MEDS: PRENATAL VITAMINS W/ FOLIC ACID TABLET (FP) PO SCH (09:55)
[2017-02-06] MEDS: THIAMINE HCL 100 MG TABLET (FP) PO SCH (21:22)
[2017-02-07] MEDS: PRENATAL VITAMINS W/ FOLIC ACID TABLET (FP) PO SCH (09:54)
[2017-02-07] MEDS: hydrOXYzine PAMOATE 50 MG CAPSULE (FP) PO PRN (09:54)
[2017-02-07] MEDS: NICOTINE 21 MG/24 HOURS TOPICAL PATCH TD SCH (09:54)
[2017-02-07] MEDS: diphenhydrAMINE HCL 50 MG CAPSULE PO PRN (21:41)
[2017-02-07] MEDS: THIAMINE HCL 100 MG TABLET (FP) PO SCH (21:41)
[2017-02-08] MEDS: NICOTINE 21 MG/24 HOURS TOPICAL PATCH TD SCH (09:58)
[2017-02-08] MEDS: PRENATAL VITAMINS W/ FOLIC ACID TABLET (FP) PO SCH (09:58)
[2017-02-08] MEDS: hydrOXYzine PAMOATE 50 MG CAPSULE (FP) PO PRN ×2 (09:59→21:35)
[2017-02-08] MEDS: THIAMINE HCL 100 MG TABLET (FP) PO SCH (21:34)
[2017-02-09] MEDS: NICOTINE 21 MG/24 HOURS TOPICAL PATCH TD SCH (09:50)
[2017-02-09] MEDS: PRENATAL VITAMINS W/ FOLIC ACID TABLET (FP) PO SCH (09:50)
[2017-02-09] MEDS: hydrOXYzine PAMOATE 50 MG CAPSULE (FP) PO PRN (09:50)
[2017-02-09] MEDS: THIAMINE HCL 100 MG TABLET (FP) PO SCH (21:27)
[2017-02-09] MEDS: diphenhydrAMINE HCL 50 MG CAPSULE PO PRN (21:27)
[2017-02-10] MEDS: PRENATAL VITAMINS W/ FOLIC ACID TABLET (FP) PO SCH (10:05)
[2017-02-10] MEDS: NICOTINE 21 MG/24 HOURS TOPICAL PATCH TD SCH (10:05)
[2017-02-10] MEDS: hydrOXYzine PAMOATE 50 MG CAPSULE (FP) PO PRN (10:07)
[2017-02-10] MEDS: THIAMINE HCL 100 MG TABLET (FP) PO SCH (21:38)
[2017-02-10] MEDS: diphenhydrAMINE HCL 50 MG CAPSULE PO PRN (21:39)
[2017-02-11] MEDS: NICOTINE 21 MG/24 HOURS TOPICAL PATCH TD SCH (09:46)
[2017-02-11] MEDS: hydrOXYzine PAMOATE 50 MG CAPSULE (FP) PO PRN ×2 (09:46→21:26)
[2017-02-11] MEDS: PRENATAL VITAMINS W/ FOLIC ACID TABLET (FP) PO SCH (09:46)
[2017-02-11] MEDS: THIAMINE HCL 100 MG TABLET (FP) PO SCH (21:27)
[2017-02-12] MEDS: PRENATAL VITAMINS W/ FOLIC ACID TABLET (FP) PO SCH (09:38)
[2017-02-12] MEDS: NICOTINE 21 MG/24 HOURS TOPICAL PATCH TD SCH (09:38)
[2017-02-12] MEDS: hydrOXYzine PAMOATE 50 MG CAPSULE (FP) PO PRN ×3 (09:39→21:17)
[2017-02-12] MEDS: THIAMINE HCL 100 MG TABLET (FP) PO SCH (21:18)
[2017-02-13] MEDS: PRENATAL VITAMINS W/ FOLIC ACID TABLET (FP) PO SCH (09:52)
[2017-02-13] MEDS: hydrOXYzine PAMOATE 50 MG CAPSULE (FP) PO PRN ×2 (09:52→21:26)
[2017-02-13] MEDS: NICOTINE 21 MG/24 HOURS TOPICAL PATCH TD SCH (09:52)
[2017-02-13] MEDS: IBUPROFEN 400 MG TABLET (FP) PO PRN (12:37)
[2017-02-13] MEDS: THIAMINE HCL 100 MG TABLET (FP) PO SCH (21:26)
[2017-02-14] MEDS: NICOTINE 21 MG/24 HOURS TOPICAL PATCH TD SCH (09:59)
[2017-02-14] MEDS: hydrOXYzine PAMOATE 50 MG CAPSULE (FP) PO PRN (09:59)
[2017-02-14] MEDS: PRENATAL VITAMINS W/ FOLIC ACID TABLET (FP) PO SCH (09:59)
[2017-02-14] MEDS: THIAMINE HCL 100 MG TABLET (FP) PO SCH (21:27)
[2017-02-14] MEDS: diphenhydrAMINE HCL 50 MG CAPSULE PO PRN (21:27)
[2017-02-15] MEDS: NICOTINE 21 MG/24 HOURS TOPICAL PATCH TD SCH (09:43)
[2017-02-15] MEDS: PRENATAL VITAMINS W/ FOLIC ACID TABLET (FP) PO SCH (09:43)
[2017-02-15] MEDS: hydrOXYzine PAMOATE 50 MG CAPSULE (FP) PO PRN (09:43)
[2017-02-15] MEDS: NICOTINE POLACRILEX 2 MG GUM BUC PRN (14:21)
[2017-02-15] MEDS: THIAMINE HCL 100 MG TABLET (FP) PO SCH (21:35)
[2017-02-15] MEDS: diphenhydrAMINE HCL 50 MG CAPSULE PO PRN (21:35)
[2017-02-16] MEDS: NICOTINE 21 MG/24 HOURS TOPICAL PATCH TD SCH (09:56)
[2017-02-16] MEDS: hydrOXYzine PAMOATE 50 MG CAPSULE (FP) PO PRN ×2 (09:56→21:39)
[2017-02-16] MEDS: PRENATAL VITAMINS W/ FOLIC ACID TABLET (FP) PO SCH (09:56)
[2017-02-16] MEDS: THIAMINE HCL 100 MG TABLET (FP) PO SCH (21:39)
[2017-02-17] MEDS: NICOTINE 21 MG/24 HOURS TOPICAL PATCH TD SCH (09:41)
[2017-02-17] MEDS: hydrOXYzine PAMOATE 50 MG CAPSULE (FP) PO PRN ×2 (09:41→21:28)
[2017-02-17] MEDS: PRENATAL VITAMINS W/ FOLIC ACID TABLET (FP) PO SCH (09:41)
[2017-02-17] MEDS: THIAMINE HCL 100 MG TABLET (FP) PO SCH (21:28)
[2017-02-18] MEDS: NICOTINE 21 MG/24 HOURS TOPICAL PATCH TD SCH (10:21)
[2017-02-18] MEDS: PRENATAL VITAMINS W/ FOLIC ACID TABLET (FP) PO SCH (10:21)
[2017-02-18] MEDS: hydrOXYzine PAMOATE 50 MG CAPSULE (FP) PO PRN ×2 (10:22→21:10)
[2017-02-18] MEDS: NICOTINE POLACRILEX 2 MG GUM BUC PRN (10:23)
[2017-02-18] MEDS: THIAMINE HCL 100 MG TABLET (FP) PO SCH (21:10)
[2017-02-19] MEDS: PRENATAL VITAMINS W/ FOLIC ACID TABLET (FP) PO SCH (09:44)
[2017-02-19] MEDS: NICOTINE 21 MG/24 HOURS TOPICAL PATCH TD SCH (09:44)
[2017-02-19] MEDS: hydrOXYzine PAMOATE 50 MG CAPSULE (FP) PO PRN (09:44)
[2017-02-19] MEDS: diphenhydrAMINE HCL 50 MG CAPSULE PO PRN (21:28)
[2017-02-19] MEDS: THIAMINE HCL 100 MG TABLET (FP) PO SCH (21:28)
--- NOTE | 2017-02-20 08:09 | PN ---
Psychiatric Progress Note Vital Signs: Vital Signs Period Temp Pulse Resp BP Sys/Alarcon Pulse Ox Last 24 Hr 98.2 F 72 18-18 104/65 Current Medications: Active Medications Generic Name Dose Route Start Last Admin Trade Name Freq PRN Reason Stop Dose Admin Acetaminophen 650 mg 01/23/17 13:27 01/27/17 15:53 Tylenol - PO 650 mg Q4H PRN Administration FEVER OR PAIN Al Hydroxide/Mg Hydroxide 30 ml 01/23/17 13:27 01/26/17 15:47 Mylanta Oral Suspension - PO 30 ml Q6H PRN Administration DYSPEPSIA Diphenhydramine HCl 50 mg 01/23/17 13:27 02/19/17 21:28 Benadryl - PO 50 mg HSMR1 PRN Administration FOR ITCHING Eucalyptus/Menthol/Phenol/Sorbitol 1 each 01/23/17 13:27 Cepastat Lozenge - MM Q4H PRN SORE THROAT Guaifenesin 10 ml 01/23/17 13:27 Robitussin Dm - PO Q6H PRN COUGH Hydroxyzine Pamoate 50 mg 01/23/17 13:27 02/19/17 09:44 Vistaril - PO 50 mg Q4H PRN Administration AGITATION Ibuprofen 400 mg 01/23/17 13:27 02/13/17 12:37 Motrin - PO 400 mg Q6H PRN Administration PAIN Loperamide HCl 4 mg 01/23/17 13:27 Imodium - PO Q6H PRN DIARRHEA Magnesium Hydroxide 30 ml 01/23/17 13:27 02/06/17 09:55 Milk Of Magnesia - PO 30 ml DAILY PRN Administration CONSTIPATION Nicotine 21 mg 01/24/17 10:00 02/19/17 09:44 Nicoderm Patch - TD 21 mg DAILY [place] Administration Nicotine Polacrilex 2 mg 01/23/17 13:27 02/18/17 10:23 Nicorette Gum - BUC 2 mg Q2H PRN Administration NICOTINE REPLACEMENT RX Multivit/Folic Acid/Iron 1 tab 01/24/17 10:00 02/19/17 09:44 Vitamins (Sjr) - PO 1 tab DAILY [place] Administration Pseudoephedrine/Triprolidine 1 combo 01/23/17 13:27 01/23/17 17:38 Actifed - PO 1 combo TID PRN Administration NASAL CONGESTION Thiamine HCl 100 mg 01/23/17 22:00 02/19/17 21:28 Vitamin B1 - PO 100 mg HS [place] Administration Psychiatric Treatment Plan - Problem List (1) Nicotine dependence Current Visit: No (2) Alcohol dependence Current Visit: Yes (3) Opioid dependence Current Visit: Yes (4) Sedative hypnotic or anxiolytic dependence Current Visit: Yes (5) PTSD (post-traumatic stress disorder) Current Visit: Yes (6) Substance-induced sleep disorder Current Visit: Yes (7) Hepatitis C Current Visit: Yes (8) Positive PPD Current Visit: Yes
[2017-02-20] MEDS: NICOTINE 21 MG/24 HOURS TOPICAL PATCH TD SCH (09:53)
[2017-02-20] MEDS: NICOTINE POLACRILEX 2 MG GUM BUC PRN (09:53)
[2017-02-20] MEDS: PRENATAL VITAMINS W/ FOLIC ACID TABLET (FP) PO SCH (09:53)
[2017-02-20] MEDS: hydrOXYzine PAMOATE 50 MG CAPSULE (FP) PO PRN ×2 (09:53→21:27)
[2017-02-20] MEDS: THIAMINE HCL 100 MG TABLET (FP) PO SCH (21:27)
[2017-02-21 07:02] VITALS: BP 105/59; PULSE 58; TEMP 97.7
[2017-02-21] MEDS: PRENATAL VITAMINS W/ FOLIC ACID TABLET (FP) PO SCH (09:46)
[2017-02-21] MEDS: NICOTINE 21 MG/24 HOURS TOPICAL PATCH TD SCH (09:46)
[2017-02-21] MEDS: hydrOXYzine PAMOATE 50 MG CAPSULE (FP) PO PRN (09:46)
--- NOTE | 2017-02-21 10:24 | PN ---
Psychiatric Progress Note Vital Signs: Vital Signs Period Temp Pulse Resp BP Sys/Alarcon Pulse Ox Last 24 Hr 97.7 F 58 16-18 105/59 Date of Session: 02/21/17 Chief Complaint:: Discharge visit HPI: Patient addressd Alcohol,Anxiolytic,Opioid dependence comorbid with PTSD, Substance induced mood disorder. ROS: Significant for Hep C,History of positive PPD. Current Medications: Active Medications Generic Name Dose Route Start Last Admin Trade Name Freq PRN Reason Stop Dose Admin Acetaminophen 650 mg 01/23/17 13:27 01/27/17 15:53 Tylenol - PO 650 mg Q4H PRN Administration FEVER OR PAIN Al Hydroxide/Mg Hydroxide 30 ml 01/23/17 13:27 01/26/17 15:47 Mylanta Oral Suspension - PO 30 ml Q6H PRN Administration DYSPEPSIA Diphenhydramine HCl 50 mg 01/23/17 13:27 02/19/17 21:28 Benadryl - PO 50 mg HSMR1 PRN Administration FOR ITCHING Eucalyptus/Menthol/Phenol/Sorbitol 1 each 01/23/17 13:27 Cepastat Lozenge - MM Q4H PRN SORE THROAT Guaifenesin 10 ml 01/23/17 13:27 Robitussin Dm - PO Q6H PRN COUGH Hydroxyzine Pamoate 50 mg 01/23/17 13:27 02/21/17 09:46 Vistaril - PO 50 mg Q4H PRN Administration AGITATION Ibuprofen 400 mg 01/23/17 13:27 02/13/17 12:37 Motrin - PO 400 mg Q6H PRN Administration PAIN Loperamide HCl 4 mg 01/23/17 13:27 Imodium - PO Q6H PRN DIARRHEA Magnesium Hydroxide 30 ml 01/23/17 13:27 02/06/17 09:55 Milk Of Magnesia - PO 30 ml DAILY PRN Administration CONSTIPATION Nicotine 21 mg 01/24/17 10:00 02/21/17 09:46 Nicoderm Patch - TD 21 mg DAILY [place] Administration Nicotine Polacrilex 2 mg 01/23/17 13:27 02/20/17 09:53 Nicorette Gum - BUC 2 mg Q2H PRN Administration NICOTINE REPLACEMENT RX Multivit/Folic Acid/Iron 1 tab 01/24/17 10:00 02/21/17 09:46 Vitamins (Sjr) - PO 1 tab DAILY [place] Administration Pseudoephedrine/Triprolidine 1 combo 01/23/17 13:27 01/23/17 17:38 Actifed - PO 1 combo TID PRN Administration NASAL CONGESTION Thiamine HCl 100 mg 01/23/17 22:00 02/20/17 21:27 Vitamin B1 - PO 100 mg HS [place] Administration Current Side Effect: No Lab tests ordered: No Lab tests reviewed: Yes Provider note:: Patient completed this program today.She has met her treatment goals and will continue to address her issues on outpatient basis at [facility]. Patient identifies areas of difficulites.She focuses on behaviors which contribute to relapse and coping skills ,support she can utilize to maintain recovery.No need for psychotropic medications at this time. Patient is stable for discharge today. Total face to face time:: 30 Mental Status Exam - Mental Status Exam Alert and Oriented to: Time, Place, Person Cognitive Function: Grossly Intact Patient Appearance: Well Groomed Mood: Euthymic Affect: Mood Congruent Patient Behavior: Cooperative Speech Pattern: Clear Voice Loudness: Normal Thought Process: Goal Oriented Thought Disorder: Not Present Hallucinations: Denies Suicidal Ideation: Denies Homicidal Ideation: Denies Insight/Judgement: Fair Sleep: Fair Appetite: Fair Muscle strength/Tone: Normal Gait/Station: Normal Psychiatric Treatment Plan - Problem List (1) Alcohol dependence Current Visit: Yes (2) Hepatitis C Current Visit: Yes (3) Opioid dependence Current Visit: Yes (4) PTSD (post-traumatic stress disorder) Current Visit: Yes (5) Sedative hypnotic or anxiolytic dependence Current Visit: Yes (6) Substance-induced sleep disorder Current Visit: Yes
== END 2017-02-21 11:15 | disposition home or self-care (01) | DRG 772 ==
LOC: YASAS 11:21 → Y3W 11:22
PROVIDERS: ADMIT Psychiatry & Neurology Psychiatry; ATTEND Psychiatry & Neurology Psychiatry
PROC: HZ42ZZZ Group Counseling for Substance Abuse Treatment, Cognitive-Behavioral (ICD-10-PCS; principal; 2017-01-23)
DX: F11.20 Opioid dependence, uncomplicated (principal); F13.20 Sedative, hypnotic or anxiolytic dependence, uncomplicated; F10.20 Alcohol dependence, uncomplicated; F17.210 Nicotine dependence, cigarettes, uncomplicated; F43.10 Post-traumatic stress disorder, unspecified; F19.282 Other psychoactive substance dependence with psychoactive substance-induced sleep disorder; B18.2 Chronic viral hepatitis C; R76.11 Nonspecific reaction to tuberculin skin test without active tuberculosis

== ENCOUNTER 2020-10-31 16:02 | Inpatient (IN) | payer BC ==
[2020-10-31 19:58] VITALS: BMI 21.6
[2020-10-31] MEDS ORDERED: METHOCARBAMOL 500 MG TABLET PO PRN (23:51)
[2020-10-31] MEDS ORDERED: MENTHOL/PHENOL 1 EACH UD MM PRN (23:51)
[2020-10-31] MEDS ORDERED: IBUPROFEN 400 MG TABLET (FP) PO PRN (23:51)
[2020-10-31] MEDS ORDERED: BISMUTH SUBSALICYLATE 524 MG/30 ML PO PRN (23:51)
[2020-10-31] MEDS ORDERED: NICOTINE POLACRILEX 2 MG GUM BUC PRN (23:51)
[2020-10-31] MEDS ORDERED: MAGNESIUM CITRATE 300 ML BOTTLE PO PRN (23:51)
[2020-10-31] MEDS ORDERED: ONDANSETRON *ODT* 4 MG TABLET SL PRN (23:51)
[2020-10-31] MEDS ORDERED: MAG HYDROX/AL HYDROX/SIMETH 30 ML UNIT-DOSE CUP PO PRN (23:51)
[2020-10-31] MEDS ORDERED: MAGNESIUM HYDROX 2400MG/30ML ORAL SUSPENSION 30 ML CUP PO PRN (23:51)
[2020-10-31] MEDS ORDERED: ACETAMINOPHEN 325 MG TABLET (FP) PO PRN ×2 (23:51)
[2020-11-01] MEDS ORDERED: methaDONE HCL 10 MG TABLET (FOR DETOX USE ONLY) PO ONE (00:43)
[2020-11-01] MEDS ORDERED: cloNIDine HCL 0.1 MG TABLET PO PRN (00:43)
[2020-11-01] MEDS: hydrOXYzine PAMOATE 25 MG CAPSULE (FP) PO SCH ×5 (06:22→23:10)
[2020-11-01] MEDS: PRENATAL VITAMINS W/ FOLIC ACID TABLET (FP) PO SCH (10:51)
[2020-11-01] MEDS: NICOTINE 21 MG/24 HOURS TOPICAL PATCH TD SCH (10:51)
[2020-11-01] MEDS: MELATONIN 5 MG TABLETS PO SCH (23:10)
[2020-11-01] MEDS: THIAMINE HCL 100 MG TABLET (FP) PO SCH (23:10)
[2020-11-02] MEDS: hydrOXYzine PAMOATE 25 MG CAPSULE (FP) PO SCH ×5 (06:06→22:34)
[2020-11-02] MEDS ORDERED: methaDONE HCL 10 MG TABLET (FOR DETOX USE ONLY) ONE (09:29)
[2020-11-02 10:19] LABS: HEMATOCRIT 41.3 % (32.4-45.2); HEMOGLOBIN 13.9 GM/dL (10.7-15.3); MCH 27.1 pg (25.7-33.7); MCHC 33.6 g/dl (32.0-36.0); MEAN CELL VOLUME 80.7 fl (80-96); MEAN PLT VOLUME 9.2 fl (7.5-11.1); PLATELET COUNT 216 10^3/uL (134-434); RBC 5.12 M/mm3 (3.60-5.2); RDW 19.5 % (11.6-15.6); WHITE BLOOD COUNT 4.4 K/mm3 (4.0-10.0)
[2020-11-02] MEDS: NICOTINE 21 MG/24 HOURS TOPICAL PATCH TD SCH (10:21)
[2020-11-02] MEDS: PRENATAL VITAMINS W/ FOLIC ACID TABLET (FP) PO SCH (10:21)
[2020-11-02 10:25] LABS: CALCIUM 9.2 mg/dL (8.5-10.1)
[2020-11-02 10:26] LABS: ALBUMIN 4.1 g/dl (3.4-5.0); BLOOD UREA NITROGEN 14.3 mg/dL (7-18)
[2020-11-02 10:28] LABS: CREATININE 0.9 mg/dL (0.55-1.3)
[2020-11-02 10:30] LABS: BILIRUBIN,TOTAL 0.7 mg/dL (0.2-1); TOT PROT 8.8 g/dl (6.4-8.2)
[2020-11-02] MEDS ORDERED: DICYCLOMINE HCL 20 MG TABLET PO ONE (15:35)
[2020-11-02] MEDS ORDERED: DICYCLOMINE HCL 10 MG CAPSULE PO ONE (17:15)
[2020-11-02] MEDS: THIAMINE HCL 100 MG TABLET (FP) PO SCH (22:34)
[2020-11-02] MEDS: MELATONIN 5 MG TABLETS PO SCH (22:34)
[2020-11-03] MEDS: hydrOXYzine PAMOATE 25 MG CAPSULE (FP) PO SCH (06:07)
[2020-11-03 06:21] VITALS: BP 136/84; PULSE 62; TEMP 97.1
[2020-11-03] MEDS ORDERED: methaDONE HCL 10 MG TABLET (FOR DETOX USE ONLY) PO ONE (10:00)
[2020-11-05] MEDS ORDERED: methaDONE HCL 10 MG TABLET (FOR DETOX USE ONLY) PO ONE (10:00)
== END 2020-11-03 09:11 | disposition left against medical advice (07) | DRG 770 ==
LOC: YASAS 16:02 → Y3N 22:49
PROVIDERS: ADMIT Allergy & Immunology; ATTEND Allergy & Immunology
PROC: HZ2ZZZZ Detoxification Services for Substance Abuse Treatment (ICD-10-PCS; principal; 2020-10-31)
DX: F11.23 Opioid dependence with withdrawal (principal); F10.230 Alcohol dependence with withdrawal, uncomplicated; F13.230 Sedative, hypnotic or anxiolytic dependence with withdrawal, uncomplicated; F12.20 Cannabis dependence, uncomplicated; F17.210 Nicotine dependence, cigarettes, uncomplicated; F43.10 Post-traumatic stress disorder, unspecified; F19.24 Other psychoactive substance dependence with psychoactive substance-induced mood disorder; F19.282 Other psychoactive substance dependence with psychoactive substance-induced sleep disorder; F51.05 Insomnia due to other mental disorder; B18.2 Chronic viral hepatitis C; Z86.11 Personal history of tuberculosis
CPT/HCPCS: 36415; 80053; 85027; 86780; 93005; 93010; C9803; Q0162; U0003; U0005

== ENCOUNTER 2021-06-04 11:21 | Inpatient (IN) | payer BC ==
[2021-06-04] MEDS ORDERED: P-EPHED 60MG/TRIPROLIDI 2.5MG TABLET PO PRN (11:55)
[2021-06-04] MEDS ORDERED: IBUPROFEN 400 MG TABLET (FP) PO PRN (11:55)
[2021-06-04] MEDS ORDERED: LOPERAMIDE HCL 2 MG CAPSULE PO PRN (11:55)
[2021-06-04] MEDS ORDERED: ACETAMINOPHEN 325 MG TABLET (FP) PO PRN (11:55)
[2021-06-04] MEDS ORDERED: MAGNESIUM HYDROX 2400MG/30ML ORAL SUSPENSION 30 ML CUP PO PRN (11:55)
[2021-06-04] MEDS ORDERED: guaiFENesin 200 MG/10 ML 10 ML UNIT-DOSE CUPS PO PRN (11:55)
[2021-06-04] MEDS ORDERED: MAG HYDROX/AL HYDROX/SIMETH 30 ML UNIT-DOSE CUP PO PRN (11:55)
[2021-06-04] MEDS ORDERED: MAGNESIUM CITRATE 300 ML BOTTLE PO PRN (11:55)
[2021-06-04 12:08] VITALS: BMI 25.8
[2021-06-04 17:18] LABS: BLOOD UREA NITROGEN 13.5 mg/dL (7-18); CALCIUM 9.1 mg/dL (8.5-10.1)
[2021-06-04 17:21] LABS: CREATININE 0.8 mg/dL (0.55-1.3)
[2021-06-04 17:23] LABS: BILIRUBIN,TOTAL 0.5 mg/dL (0.2-1); TOT PROT 7.5 g/dl (6.4-8.2)
[2021-06-04 17:24] LABS: HEMATOCRIT 36.3 % (32.4-45.2); HEMOGLOBIN 12.4 GM/dL (10.7-15.3); MCHC 34.1 g/dl (32.0-36.0); MEAN CELL VOLUME 90.8 fl (80-96); MEAN PLT VOLUME 9.3 fl (7.5-11.1); PLATELET COUNT 128 10^3/uL (134-434); RBC 3.99 M/mm3 (3.60-5.2); WHITE BLOOD COUNT 2.7 K/mm3 (4.0-10.0)
[2021-06-04 17:38] LABS: SYPHILIS W/ RPR CONF NON-REACTIVE (NONREACTIVE)
[2021-06-04] MEDS: hydrOXYzine PAMOATE 25 MG CAPSULE (FP) PO SCH ×3 (17:45→21:24)
[2021-06-04] MEDS: NICOTINE 10 MG CARTRIDGE (INHALER) IH PRN (17:47)
[2021-06-04] MEDS: NICOTINE 7 MG/24 HOURS TOPICAL PATCH TD SCH (17:48)
[2021-06-04] MEDS: PRENATAL VITAMINS W/ FOLIC ACID TABLET (FP) PO SCH (17:48)
[2021-06-04] MEDS: MELATONIN 5 MG TABLETS PO SCH (21:24)
[2021-06-04] MEDS: THIAMINE HCL 100 MG TABLET (FP) PO SCH (21:24)
[2021-06-05] MEDS: hydrOXYzine PAMOATE 25 MG CAPSULE (FP) PO SCH ×5 (06:03→21:55)
[2021-06-05] MEDS: methaDONE HCL 40 MG DISPERSABLE TABLET PO SCH (08:26)
[2021-06-05] MEDS: PRENATAL VITAMINS W/ FOLIC ACID TABLET (FP) PO SCH (10:36)
[2021-06-05] MEDS: NICOTINE 7 MG/24 HOURS TOPICAL PATCH TD SCH (10:36)
[2021-06-05] MEDS: NICOTINE 10 MG CARTRIDGE (INHALER) IH PRN (10:36)
[2021-06-05 17:18] LABS: PH,URINE 5.5 (5.0-8.0); URINE APPEARANCE CLOUDY; URINE BILIRUBIN NEGATIVE (NEGATIVE); URINE COLOR YELLOW; URINE GLUCOSE (UA) NEGATIVE (NEGATIVE); URINE KETONE NEGATIVE (NEGATIVE); URINE LEUK ESTERASE NEGATIVE (NEGATIVE); URINE NITRITE NEGATIVE (NEGATIVE); URINE PROTEIN NEGATIVE (NEGATIVE); URINE UROBILINOGEN 0.2 mg/dL (0.2-1.0)
[2021-06-05] MEDS: MELATONIN 5 MG TABLETS PO SCH (21:55)
[2021-06-05] MEDS: THIAMINE HCL 100 MG TABLET (FP) PO SCH (21:55)
[2021-06-06] MEDS: hydrOXYzine PAMOATE 25 MG CAPSULE (FP) PO SCH ×5 (06:48→21:42)
[2021-06-06] MEDS: methaDONE HCL 40 MG DISPERSABLE TABLET PO SCH (06:48)
[2021-06-06 07:40] VITALS: PULSE 66
[2021-06-06] MEDS: NICOTINE 10 MG CARTRIDGE (INHALER) IH PRN ×2 (08:28→18:44)
[2021-06-06] MEDS: PRENATAL VITAMINS W/ FOLIC ACID TABLET (FP) PO SCH (11:03)
[2021-06-06] MEDS: NICOTINE 7 MG/24 HOURS TOPICAL PATCH TD SCH (11:04)
[2021-06-06] MEDS: MELATONIN 5 MG TABLETS PO SCH (21:42)
[2021-06-06] MEDS: THIAMINE HCL 100 MG TABLET (FP) PO SCH (21:42)
[2021-06-07] MEDS: hydrOXYzine PAMOATE 25 MG CAPSULE (FP) PO SCH ×5 (06:54→22:00)
[2021-06-07] MEDS: methaDONE HCL 40 MG DISPERSABLE TABLET PO SCH (06:55)
[2021-06-07] MEDS: PRENATAL VITAMINS W/ FOLIC ACID TABLET (FP) PO SCH (09:57)
[2021-06-07] MEDS: NICOTINE 7 MG/24 HOURS TOPICAL PATCH TD SCH (09:58)
[2021-06-07] MEDS: THIAMINE HCL 100 MG TABLET (FP) PO SCH (22:00)
[2021-06-07] MEDS: MELATONIN 5 MG TABLETS PO SCH (22:01)
[2021-06-08] MEDS: methaDONE HCL 40 MG DISPERSABLE TABLET PO SCH (06:49)
[2021-06-08] MEDS: hydrOXYzine PAMOATE 25 MG CAPSULE (FP) PO SCH (06:50)
[2021-06-08 07:11] VITALS: BP 113/66; TEMP 98
== END 2021-06-08 09:55 | disposition home or self-care (01) | DRG 772 ==
LOC: YASAS 11:21 → Y5N 15:49
PROVIDERS: ADMIT Allergy & Immunology; ATTEND Allergy & Immunology
PROC: HZ42ZZZ Group Counseling for Substance Abuse Treatment, Cognitive-Behavioral (ICD-10-PCS; principal; 2021-06-04)
DX: F11.20 Opioid dependence, uncomplicated (principal); F14.20 Cocaine dependence, uncomplicated; F10.20 Alcohol dependence, uncomplicated; F13.20 Sedative, hypnotic or anxiolytic dependence, uncomplicated; F17.210 Nicotine dependence, cigarettes, uncomplicated; F32.A Depression, unspecified; F41.9 Anxiety disorder, unspecified; F43.10 Post-traumatic stress disorder, unspecified; B18.2 Chronic viral hepatitis C; R76.11 Nonspecific reaction to tuberculin skin test without active tuberculosis
CPT/HCPCS: 36415; 71046-TC-FY; 80053; 81003; 81025; 85027; 86780; 86803; 87522; C9803; U0003; U0005

== ENCOUNTER 2021-10-19 08:15 | Inpatient (IN) | payer BC ==
[2021-10-19 09:10] VITALS: BMI 25.8
[2021-10-19] MEDS ORDERED: MAGNESIUM HYDROX 2400MG/30ML ORAL SUSPENSION 30 ML CUP PO PRN (11:10)
[2021-10-19] MEDS ORDERED: MAG HYDROX/AL HYDROX/SIMETH 30 ML UNIT-DOSE CUP PO PRN (11:10)
[2021-10-19] MEDS ORDERED: METHOCARBAMOL 500 MG TABLET PO PRN (11:10)
[2021-10-19] MEDS ORDERED: LOPERAMIDE HCL 2 MG CAPSULE PO PRN (11:10)
[2021-10-19] MEDS ORDERED: MAGNESIUM CITRATE 300 ML BOTTLE PO PRN (11:10)
[2021-10-19] MEDS ORDERED: NALOXONE HCL (KLOXXADO) 8 MG SPRAY NS PRN (11:10)
[2021-10-19] MEDS ORDERED: BISMUTH SUBSALICYLATE 262 MG/15 ML BTL PO PRN (11:10)
[2021-10-19] MEDS ORDERED: IBUPROFEN 400 MG TABLET (FP) PO PRN (11:10)
[2021-10-19] MEDS ORDERED: DICYCLOMINE HCL 10 MG CAPSULE PO PRN (11:10)
[2021-10-19] MEDS ORDERED: ACETAMINOPHEN 325 MG TABLET (FP) PO PRN ×2 (11:10)
[2021-10-19] MEDS ORDERED: IBUPROFEN 600 MG TABLET (FP) PO PRN (11:10)
[2021-10-19] MEDS ORDERED: BENZOCAINE/MENTHOL (CHLORASEPTIC ) LOZENGE MM PRN (11:10)
[2021-10-19] MEDS ORDERED: NICOTINE 10 MG CARTRIDGE (INHALER) IH PRN (11:10)
[2021-10-19] MEDS ORDERED: NICOTINE POLACRILEX 2 MG GUM BUC PRN (11:10)
[2021-10-19] MEDS: PRENATAL VITAMINS W/ FOLIC ACID TABLET (FP) PO SCH (12:30)
[2021-10-19] MEDS: hydrOXYzine PAMOATE 25 MG CAPSULE (FP) PO SCH ×3 (15:12→22:21)
[2021-10-19 15:28] LABS: HEMATOCRIT 36.5 % (32.4-45.2); MCH 28.9 pg (25.7-33.7); MCHC 32.8 g/dl (32.0-36.0); MEAN PLT VOLUME 9.5 fl (7.5-11.1); PLATELET COUNT 192 10^3/uL (134-434); RBC 4.14 M/mm3 (3.60-5.2); RDW 14.6 % (11.6-15.6)
[2021-10-19 15:36] LABS: CALCIUM 8.7 mg/dL (8.5-10.1)
[2021-10-19 15:37] LABS: ALBUMIN 3.9 g/dl (3.4-5.0); BLOOD UREA NITROGEN 15.2 mg/dL (7-18)
[2021-10-19 15:40] LABS: CREATININE 0.9 mg/dL (0.55-1.3)
[2021-10-19 15:41] LABS: BILIRUBIN,TOTAL 0.6 mg/dL (0.2-1); TOT PROT 7.7 g/dl (6.4-8.2)
[2021-10-19] MEDS: THIAMINE HCL 100 MG TABLET (FP) PO SCH (22:21)
[2021-10-19] MEDS: MELATONIN 5 MG TABLETS PO SCH (22:21)
[2021-10-20] MEDS: hydrOXYzine PAMOATE 25 MG CAPSULE (FP) PO SCH ×5 (06:12→22:50)
[2021-10-20] MEDS: ONDANSETRON *ODT* 4 MG TABLET SL PRN (08:24)
[2021-10-20] MEDS ORDERED: cloNIDine HCL 0.1 MG TABLET PO PRN (10:34)
[2021-10-20] MEDS ORDERED: methaDONE HCL 10 MG TABLET (FOR DETOX USE ONLY) PO ONE (10:34)
[2021-10-20] MEDS: diazePAM 5 MG TABLET PO SCH ×2 (12:06→18:31)
[2021-10-20] MEDS: PRENATAL VITAMINS W/ FOLIC ACID TABLET (FP) PO SCH (12:10)
[2021-10-20] MEDS ORDERED: TRIMETHOBENZAMIDE HCL 200MG/2ML INJ IM PRN (14:42)
[2021-10-20] MEDS: diazePAM 5 MG TABLET PO PRN (18:30)
[2021-10-20] MEDS: MELATONIN 5 MG TABLETS PO SCH (22:50)
[2021-10-20] MEDS: THIAMINE HCL 100 MG TABLET (FP) PO SCH (22:50)
[2021-10-21] MEDS: diazePAM 5 MG TABLET PO SCH ×5 (00:14→22:58)
[2021-10-21] MEDS: hydrOXYzine PAMOATE 25 MG CAPSULE (FP) PO SCH ×5 (06:10→22:58)
[2021-10-21] MEDS ORDERED: methaDONE HCL 10 MG TABLET (FOR DETOX USE ONLY) ONE (09:57)
[2021-10-21] MEDS: PRENATAL VITAMINS W/ FOLIC ACID TABLET (FP) PO SCH (10:39)
[2021-10-21 22:15] VITALS: RESP 18
[2021-10-21] MEDS: MELATONIN 5 MG TABLETS PO SCH (22:57)
[2021-10-21] MEDS: THIAMINE HCL 100 MG TABLET (FP) PO SCH (22:58)
[2021-10-22] MEDS: hydrOXYzine PAMOATE 25 MG CAPSULE (FP) PO SCH ×3 (05:56→15:31)
[2021-10-22] MEDS: diazePAM 5 MG TABLET PO SCH ×3 (05:56→22:13)
[2021-10-22] MEDS: ONDANSETRON *ODT* 4 MG TABLET SL PRN (09:21)
[2021-10-22] MEDS ORDERED: methaDONE HCL 10 MG TABLET (FOR DETOX USE ONLY) PO ONE (10:00)
[2021-10-22] MEDS: diazePAM 5 MG TABLET PO PRN ×2 (10:30→18:09)
[2021-10-22] MEDS: PRENATAL VITAMINS W/ FOLIC ACID TABLET (FP) PO SCH (10:32)
[2021-10-22] MEDS: hydrOXYzine PAMOATE 25 MG CAPSULE (FP) PO PRN ×2 (18:10→22:14)
[2021-10-22] MEDS: MELATONIN 5 MG TABLETS PO SCH (22:14)
[2021-10-22] MEDS: THIAMINE HCL 100 MG TABLET (FP) PO SCH (22:14)
[2021-10-23] MEDS ORDERED: diazePAM 5 MG TABLET PO SCH (06:00)
[2021-10-23 09:19] VITALS: BP 135/82; PULSE 74; TEMP 99.8
[2021-10-23] MEDS: PRENATAL VITAMINS W/ FOLIC ACID TABLET (FP) PO SCH (12:03)
[2021-10-24] MEDS ORDERED: diazePAM 5 MG TABLET PO ONE (06:00)
[2021-10-24] MEDS ORDERED: methaDONE HCL 10 MG TABLET (FOR DETOX USE ONLY) PO ONE (10:00)
== END 2021-10-23 09:46 | disposition left against medical advice (07) | DRG 770 ==
LOC: SUATTDRO 08:15 → YASAS 08:15 → Y6N 11:44 → UNDOADMIN 11:44
PROVIDERS: ADMIT Allergy & Immunology; ATTEND Surgery
PROC: HZ2ZZZZ Detoxification Services for Substance Abuse Treatment (ICD-10-PCS; principal; 2021-10-19)
DX: F10.230 Alcohol dependence with withdrawal, uncomplicated (principal); F11.20 Opioid dependence, uncomplicated; F12.20 Cannabis dependence, uncomplicated; F17.210 Nicotine dependence, cigarettes, uncomplicated; F43.10 Post-traumatic stress disorder, unspecified; F19.24 Other psychoactive substance dependence with psychoactive substance-induced mood disorder; F19.282 Other psychoactive substance dependence with psychoactive substance-induced sleep disorder; B18.2 Chronic viral hepatitis C; G62.9 Polyneuropathy, unspecified; K21.9 Gastro-esophageal reflux disease without esophagitis; Z28.310 Unvaccinated for COVID-19
CPT/HCPCS: 36415; 80053; 81025; 82947; 83036; 85027; 86780; 87811; C9803-CS; J0735; Q0162; U0003; U0005

== ENCOUNTER 2022-12-25 11:41 | Inpatient (IN) | payer OTHER ==
[2022-12-25 12:10] VITALS: BMI 25.8
[2022-12-25] MEDS ORDERED: LOPERAMIDE HCL 2 MG CAPSULE PO PRN (12:49)
[2022-12-25] MEDS ORDERED: ACETAMINOPHEN 325 MG TABLET (FP) PO PRN (12:49)
[2022-12-25] MEDS ORDERED: NICOTINE POLACRILEX 2 MG GUM BUC PRN (12:49)
[2022-12-25] MEDS ORDERED: NALOXONE HCL (KLOXXADO) 8 MG SPRAY NS PRN (12:49)
[2022-12-25] MEDS ORDERED: METHOCARBAMOL 500 MG TABLET PO PRN (12:49)
[2022-12-25] MEDS ORDERED: guaiFENesin 600 MG TABLET.ER (FP) PO PRN (12:49)
[2022-12-25] MEDS ORDERED: DICYCLOMINE HCL 10 MG CAPSULE PO PRN (12:49)
[2022-12-25] MEDS ORDERED: POLYETHYLENE GLYCOL (HEALTHYLAX) 3350 17 GM PACKET PO PRN (12:49)
[2022-12-25] MEDS ORDERED: IBUPROFEN 600 MG TABLET (FP) PO PRN (12:49)
[2022-12-25] MEDS ORDERED: MAGNESIUM HYDROX 2400MG/30ML ORAL SUSPENSION 30 ML CUP PO PRN (12:49)
[2022-12-25] MEDS ORDERED: NALOXONE HCL 0.4 MG/ML VIAL IM PRN (12:49)
[2022-12-25] MEDS ORDERED: ONDANSETRON *ODT* 4 MG TABLET SL PRN (12:49)
[2022-12-25] MEDS ORDERED: BISMUTH SUBSALICYLATE 524 MG/30 ML PO PRN (12:49)
[2022-12-25] MEDS ORDERED: BENZONATATE 200 MG CAPSULE PO PRN (12:49)
[2022-12-25] MEDS ORDERED: IBUPROFEN 400 MG TABLET (FP) PO PRN (12:49)
[2022-12-25] MEDS ORDERED: BENZOCAINE/MENTHOL (CHLORASEPTIC ) LOZENGE MM PRN (12:49)
[2022-12-25] MEDS ORDERED: hydrOXYzine PAMOATE 25 MG CAPSULE (FP) PO PRN (12:49)
[2022-12-25] MEDS ORDERED: MAG HYDROX/AL HYDROX/SIMETH 30 ML UNIT-DOSE CUP PO PRN (12:49)
[2022-12-25] MEDS ORDERED: chlordiazePOXIDE HCL 25 MG CAPSULE PO PRN (18:14)
[2022-12-25] MEDS: chlordiazePOXIDE HCL 25 MG CAPSULE PO SCH (22:34)
[2022-12-25] MEDS: MELATONIN 5 MG TABLETS PO SCH (22:34)
[2022-12-25] MEDS: THIAMINE HCL 100 MG TABLET (FP) PO SCH (22:37)
[2022-12-26] MEDS: chlordiazePOXIDE HCL 25 MG CAPSULE PO SCH ×4 (05:41→22:15)
[2022-12-26 09:54] LABS: POTASSIUM 4.2 mmol/L (3.5-5.1)
[2022-12-26 10:06] LABS: HEMATOCRIT 37.6 % (32.4-45.2); HEMOGLOBIN 12.2 GM/dL (10.7-15.3); MCH 29.6 pg (25.7-33.7); MCHC 32.5 g/dl (32.0-36.0); MEAN CELL VOLUME 91.2 fl (80-96); MEAN PLT VOLUME 9.3 fl (7.5-11.1); PLATELET COUNT 157 10^3/uL (134-434); RBC 4.12 M/mm3 (3.60-5.2); RDW 14.1 % (11.6-15.6); WHITE BLOOD COUNT 3.8 K/mm3 (4.0-10.0)
[2022-12-26] MEDS: PRENATAL VITAMINS W/ FOLIC ACID TABLET (FP) PO SCH (10:11)
[2022-12-26 10:12] LABS: ALBUMIN 3.2 g/dl (3.4-5.0)
[2022-12-26 10:13] LABS: BLOOD UREA NITROGEN 12.3 mg/dL (7-18); CALCIUM 8.3 mg/dL (8.5-10.1)
[2022-12-26] MEDS: NICOTINE 14 MG/24 HOURS TOPICAL PATCH TD SCH (10:14)
[2022-12-26 10:15] LABS: CREATININE 0.8 mg/dL (0.55-1.3)
[2022-12-26 10:17] LABS: BILIRUBIN,TOTAL 0.2 mg/dL (0.2-1); TOT PROT 6.6 g/dl (6.4-8.2)
[2022-12-26 17:24] LABS: HIV INTERPRETATION NEGATIVE (NEGATIVE)
[2022-12-26] MEDS: THIAMINE HCL 100 MG TABLET (FP) PO SCH (22:14)
[2022-12-26] MEDS: MELATONIN 5 MG TABLETS PO SCH (22:14)
[2022-12-27] MEDS: chlordiazePOXIDE HCL 25 MG CAPSULE PO SCH ×4 (05:15→22:03)
[2022-12-27] MEDS: NICOTINE 14 MG/24 HOURS TOPICAL PATCH TD SCH (10:00)
[2022-12-27] MEDS: PRENATAL VITAMINS W/ FOLIC ACID TABLET (FP) PO SCH (10:00)
[2022-12-27] MEDS: MELATONIN 5 MG TABLETS PO SCH (22:03)
[2022-12-27] MEDS: THIAMINE HCL 100 MG TABLET (FP) PO SCH (22:03)
[2022-12-28] MEDS ORDERED: chlordiazePOXIDE HCL 10 MG CAPSULE PO PRN
[2022-12-28] MEDS ORDERED: chlordiazePOXIDE HCL 10 MG CAPSULE PO SCH (05:00)
[2022-12-28 06:07] VITALS: RESP 18
[2022-12-28 09:29] VITALS: BP 101/61; PULSE 75; TEMP 97.3
[2022-12-29] MEDS ORDERED: chlordiazePOXIDE HCL 10 MG CAPSULE PO SCH (05:00)
[2022-12-30] MEDS ORDERED: chlordiazePOXIDE HCL 10 MG CAPSULE PO ONE (05:00)
== END 2022-12-28 10:06 | disposition left against medical advice (07) | DRG 770 ==
LOC: YASAS 11:41 → Y6N 14:04
PROVIDERS: ADMIT Allergy & Immunology; ATTEND Surgery
PROC: HZ2ZZZZ Detoxification Services for Substance Abuse Treatment (ICD-10-PCS; principal; 2022-12-25)
DX: F10.230 Alcohol dependence with withdrawal, uncomplicated (principal); F14.20 Cocaine dependence, uncomplicated; F12.20 Cannabis dependence, uncomplicated; F17.210 Nicotine dependence, cigarettes, uncomplicated; F51.05 Insomnia due to other mental disorder; G60.9 Hereditary and idiopathic neuropathy, unspecified; B18.2 Chronic viral hepatitis C; R76.11 Nonspecific reaction to tuberculin skin test without active tuberculosis
CPT/HCPCS: 36415; 71046-TC-FY; 80053; 81025; 85027; 86780; 87389; 87635; Q0162

== ENCOUNTER 2023-04-15 12:11 | Inpatient (IN) | payer OTHER ==
[2023-04-15 12:31] VITALS: BMI 28.4
[2023-04-15] MEDS ORDERED: IBUPROFEN 400 MG TABLET (FP) PO PRN (13:30)
[2023-04-15] MEDS ORDERED: DICYCLOMINE HCL 10 MG CAPSULE PO PRN (13:30)
[2023-04-15] MEDS ORDERED: P-EPHED 60MG/TRIPROLIDI 2.5MG TABLET PO PRN (13:30)
[2023-04-15] MEDS ORDERED: ACETAMINOPHEN 325 MG TABLET (FP) PO PRN (13:30)
[2023-04-15] MEDS ORDERED: guaiFENesin 600 MG TABLET.ER (FP) PO PRN (13:30)
[2023-04-15] MEDS ORDERED: NICOTINE POLACRILEX 2 MG GUM BUC PRN (13:30)
[2023-04-15] MEDS ORDERED: BENZOCAINE/MENTHOL (CHLORASEPTIC ) LOZENGE MM PRN (13:30)
[2023-04-15] MEDS ORDERED: IBUPROFEN 600 MG TABLET (FP) PO PRN (13:30)
[2023-04-15] MEDS ORDERED: MAG HYDROX/AL HYDROX/SIMETH 30 ML UNIT-DOSE CUP PO PRN (13:30)
[2023-04-15] MEDS ORDERED: BISMUTH SUBSALICYLATE 524 MG/30 ML PO PRN (13:30)
[2023-04-15] MEDS ORDERED: LOPERAMIDE HCL 2 MG CAPSULE PO PRN (13:30)
[2023-04-15] MEDS ORDERED: MAGNESIUM HYDROX 2400MG/30ML ORAL SUSPENSION 30 ML CUP PO PRN (13:30)
[2023-04-15] MEDS ORDERED: BENZONATATE 200 MG CAPSULE PO PRN (13:30)
[2023-04-15] MEDS ORDERED: POLYETHYLENE GLYCOL (HEALTHYLAX) 3350 17 GM PACKET PO PRN (13:30)
[2023-04-15] MEDS: hydrOXYzine PAMOATE 25 MG CAPSULE (FP) PO PRN ×2 (15:27→22:47)
[2023-04-15] MEDS: ONDANSETRON *ODT* 4 MG TABLET SL PRN (15:27)
[2023-04-15] MEDS: THIAMINE HCL 100 MG TABLET (FP) PO SCH (22:46)
[2023-04-15] MEDS: MELATONIN 5 MG TABLETS PO SCH (22:46)
[2023-04-15] MEDS: METHOCARBAMOL 500 MG TABLET PO PRN (22:47)
[2023-04-16] MEDS: ONDANSETRON *ODT* 4 MG TABLET SL PRN (05:35)
[2023-04-16] MEDS: NICOTINE 14 MG/24 HOURS TOPICAL PATCH TD SCH (10:20)
[2023-04-16] MEDS: PRENATAL VITAMINS W/ FOLIC ACID TABLET (FP) PO SCH (10:21)
[2023-04-16 11:12] LABS: CHLORIDE 108 mmol/L (98-107); POTASSIUM 4.6 mmol/L (3.5-5.1); SODIUM 138 mmol/L (136-145)
[2023-04-16 11:26] LABS: CALCIUM 8.8 mg/dL (8.5-10.1)
[2023-04-16 11:27] LABS: ALBUMIN 3.3 g/dl (3.4-5.0); ANION GAP 4 mmol/L (4-13); BLOOD UREA NITROGEN 12.4 mg/dL (7-18); CO2 26 mmol/L (21-32); GLUCOSE,RANDOM 87 mg/dL (74-106)
[2023-04-16 11:30] LABS: CREATININE 0.9 mg/dL (0.55-1.3); SGOT/AST 13 U/L (15-37); SGPT/ALT 20 U/L (13-61)
[2023-04-16 11:31] LABS: BILIRUBIN,TOTAL 0.2 mg/dL (0.2-1); TOT PROT 6.8 g/dl (6.4-8.2)
[2023-04-16 11:33] LABS: ALK PHOS 66 U/L (45-117)
[2023-04-16 12:54] LABS: HEMATOCRIT 37.8 % (32.4-45.2); HEMOGLOBIN 12.2 GM/dL (10.7-15.3); MCHC 32.4 g/dl (32.0-36.0); MEAN CELL VOLUME 92.6 fl (80-96); MEAN PLT VOLUME 9.6 fl (7.5-11.1); PLATELET COUNT 209 10^3/uL (134-434); RBC 4.09 M/mm3 (3.60-5.2); WHITE BLOOD COUNT 4.4 K/mm3 (4.0-10.0)
[2023-04-16] MEDS: METHOCARBAMOL 500 MG TABLET PO PRN (17:42)
[2023-04-16] MEDS: hydrOXYzine PAMOATE 25 MG CAPSULE (FP) PO PRN (17:42)
[2023-04-16] MEDS ORDERED: chlordiazePOXIDE HCL 25 MG CAPSULE PO PRN (17:52)
[2023-04-16] MEDS: THIAMINE HCL 100 MG TABLET (FP) PO SCH (22:29)
[2023-04-16] MEDS: MELATONIN 5 MG TABLETS PO SCH (22:29)
[2023-04-16] MEDS: chlordiazePOXIDE HCL 25 MG CAPSULE PO SCH (22:29)
[2023-04-17] MEDS: chlordiazePOXIDE HCL 25 MG CAPSULE PO SCH ×4 (05:34→22:26)
[2023-04-17] MEDS: PRENATAL VITAMINS W/ FOLIC ACID TABLET (FP) PO SCH (10:02)
[2023-04-17] MEDS: NICOTINE 14 MG/24 HOURS TOPICAL PATCH TD SCH (10:04)
[2023-04-17] MEDS: hydrOXYzine PAMOATE 25 MG CAPSULE (FP) PO PRN (17:54)
[2023-04-17] MEDS: THIAMINE HCL 100 MG TABLET (FP) PO SCH (22:25)
[2023-04-17] MEDS: MELATONIN 5 MG TABLETS PO SCH (22:25)
[2023-04-17] MEDS: METHOCARBAMOL 500 MG TABLET PO PRN (22:27)
[2023-04-18] MEDS: chlordiazePOXIDE HCL 25 MG CAPSULE PO SCH ×4 (04:10→22:14)
[2023-04-18] MEDS: NICOTINE 14 MG/24 HOURS TOPICAL PATCH TD SCH (10:10)
[2023-04-18] MEDS: PRENATAL VITAMINS W/ FOLIC ACID TABLET (FP) PO SCH (10:12)
[2023-04-18] MEDS: THIAMINE HCL 100 MG TABLET (FP) PO SCH (22:14)
[2023-04-18] MEDS: MELATONIN 5 MG TABLETS PO SCH (22:14)
[2023-04-19] MEDS ORDERED: chlordiazePOXIDE HCL 10 MG CAPSULE PO PRN
[2023-04-19] MEDS: chlordiazePOXIDE HCL 10 MG CAPSULE PO SCH ×3 (05:50→10:31)
[2023-04-19 09:46] VITALS: BP 113/69; PULSE 79; RESP 18; TEMP 97.5
[2023-04-19] MEDS: PRENATAL VITAMINS W/ FOLIC ACID TABLET (FP) PO SCH (10:30)
[2023-04-19] MEDS: NICOTINE 14 MG/24 HOURS TOPICAL PATCH TD SCH (10:30)
[2023-04-20] MEDS ORDERED: chlordiazePOXIDE HCL 10 MG CAPSULE PO SCH (05:00)
[2023-04-21] MEDS ORDERED: chlordiazePOXIDE HCL 10 MG CAPSULE PO ONE (05:00)
== END 2023-04-19 11:17 | disposition home or self-care (01) | DRG 774 ==
LOC: YASAS 12:11 → UNDOADMIN 14:55 → Y6N 14:55 → UNDODISIN 04-19 11:17
PROVIDERS: ADMIT Allergy & Immunology; ATTEND Allergy & Immunology
PROC: HZ2ZZZZ Detoxification Services for Substance Abuse Treatment (ICD-10-PCS; principal; 2023-04-15)
DX: F10.230 Alcohol dependence with withdrawal, uncomplicated (principal); F14.10 Cocaine abuse, uncomplicated; F12.20 Cannabis dependence, uncomplicated; F17.210 Nicotine dependence, cigarettes, uncomplicated; B18.2 Chronic viral hepatitis C; Z86.11 Personal history of tuberculosis
CPT/HCPCS: 0241U-QW; 36415; 80053; 80307; 81025; 85027; 86780; 87811; Q0162

== ENCOUNTER 2023-08-05 08:35 | Inpatient (IN) | payer OTHER ==
[2023-08-05 09:10] VITALS: BMI 28.0
[2023-08-05] MEDS ORDERED: guaiFENesin 600 MG TABLET.ER (FP) PO PRN (10:05)
[2023-08-05] MEDS ORDERED: MAG HYDROX/AL HYDROX/SIMETH 30 ML UNIT-DOSE CUP PO PRN (10:05)
[2023-08-05] MEDS ORDERED: NALOXONE HCL 0.4 MG/ML VIAL IM PRN (10:05)
[2023-08-05] MEDS ORDERED: LORazepam 1 MG TABLET PO PRN (10:05)
[2023-08-05] MEDS ORDERED: ONDANSETRON *ODT* 4 MG TABLET SL PRN (10:05)
[2023-08-05] MEDS ORDERED: POLYETHYLENE GLYCOL (HEALTHYLAX) 3350 17 GM PACKET PO PRN (10:05)
[2023-08-05] MEDS ORDERED: IBUPROFEN 600 MG TABLET (FP) PO PRN (10:05)
[2023-08-05] MEDS ORDERED: DICYCLOMINE HCL 10 MG CAPSULE PO PRN (10:05)
[2023-08-05] MEDS ORDERED: IBUPROFEN 400 MG TABLET (FP) PO PRN (10:05)
[2023-08-05] MEDS ORDERED: BENZOCAINE/MENTHOL (CHLORASEPTIC ) LOZENGE MM PRN (10:05)
[2023-08-05] MEDS ORDERED: NALOXONE HCL (KLOXXADO) 8 MG SPRAY NS PRN (10:05)
[2023-08-05] MEDS ORDERED: MAGNESIUM HYDROX 2400MG/30ML ORAL SUSPENSION 30 ML CUP PO PRN (10:05)
[2023-08-05] MEDS ORDERED: BENZONATATE 200 MG CAPSULE PO PRN (10:05)
[2023-08-05] MEDS ORDERED: LOPERAMIDE HCL 2 MG CAPSULE PO PRN (10:05)
[2023-08-05] MEDS ORDERED: BISMUTH SUBSALICYLATE 524 MG/30 ML PO PRN (10:05)
[2023-08-05] MEDS ORDERED: PRENATAL VITAMINS W/ FOLIC ACID TABLET (FP) PO ONE (10:27)
[2023-08-05] MEDS ORDERED: LORazepam 2 MG TABLET ONE (10:28)
[2023-08-05] MEDS ORDERED: NICOTINE 14 MG/24 HOURS TOPICAL PATCH TD ONE (10:28)
[2023-08-05] MEDS: PRENATAL VITAMINS W/ FOLIC ACID TABLET (FP) PO SCH (10:34)
[2023-08-05] MEDS: NICOTINE 14 MG/24 HOURS TOPICAL PATCH TD SCH (10:34)
[2023-08-05] MEDS: LORazepam 2 MG TABLET PO SCH (10:34)
[2023-08-05] MEDS: ACETAMINOPHEN 325 MG TABLET (FP) PO PRN (17:34)
[2023-08-05] MEDS: MELATONIN 5 MG TABLETS PO SCH (22:25)
[2023-08-05] MEDS: THIAMINE 100 MG TABLET PO SCH (22:25)
[2023-08-05] MEDS: METHOCARBAMOL 500 MG TABLET PO PRN (22:26)
[2023-08-06] MEDS: NICOTINE POLACRILEX 2 MG GUM BUC PRN (13:08)
[2023-08-06 14:50] LABS: HEMATOCRIT 35.7 % (32.4-45.2); HEMOGLOBIN 11.7 GM/dL (10.7-15.3); MCH 29.4 pg (25.7-33.7); MCHC 32.8 g/dl (32.0-36.0); MEAN CELL VOLUME 89.6 fl (80-96); MEAN PLT VOLUME 10.1 fl (7.5-11.1); PLATELET COUNT 250 10^3/uL (134-434); RBC 3.98 M/mm3 (3.60-5.2); RDW 13.7 % (11.6-15.6); WHITE BLOOD COUNT 4.9 K/mm3 (4.0-10.0)
[2023-08-06 15:12] LABS: POTASSIUM 3.6 mmol/L (3.5-5.1)
[2023-08-06 15:13] LABS: CALCIUM 9.1 mg/dL (8.5-10.1)
[2023-08-06 15:15] LABS: ALBUMIN 3.5 g/dl (3.4-5.0); BLOOD UREA NITROGEN 14.3 mg/dL (7-18)
[2023-08-06 15:17] LABS: CREATININE 0.9 mg/dL (0.55-1.3)
[2023-08-06 15:19] LABS: BILIRUBIN,TOTAL 0.3 mg/dL (0.2-1); TOT PROT 6.7 g/dl (6.4-8.2)
[2023-08-07] MEDS: LORazepam 1 MG TABLET PO SCH (05:43)
[2023-08-07] MEDS: hydrOXYzine PAMOATE 25 MG CAPSULE (FP) PO PRN (10:11)
[2023-08-07] MEDS: LACTULOSE 20 GM/30 ML UDC (FOR ORAL USE ONLY) PO SCH (13:40)
[2023-08-08] MEDS ORDERED: LORazepam 0.5 MG TABLET PO PRN
[2023-08-08] MEDS: LORazepam 0.5 MG TABLET PO SCH (05:38)
[2023-08-08 06:08] VITALS: PULSE 73
[2023-08-08 09:08] VITALS: BP 111/64; RESP 20; TEMP 97.8
[2023-08-09] MEDS ORDERED: LORazepam 0.5 MG TABLET PO ONE (05:00)
== END 2023-08-08 09:42 | disposition home or self-care (01) | DRG 774 ==
LOC: YASAS 08:35 → Y3N 10:09
PROVIDERS: ADMIT Allergy & Immunology; ATTEND Surgery
PROC: HZ2ZZZZ Detoxification Services for Substance Abuse Treatment (ICD-10-PCS; principal; 2023-08-05)
DX: F10.230 Alcohol dependence with withdrawal, uncomplicated (principal); F14.20 Cocaine dependence, uncomplicated; F12.20 Cannabis dependence, uncomplicated; F17.213 Nicotine dependence, cigarettes, with withdrawal; K21.9 Gastro-esophageal reflux disease without esophagitis; B18.2 Chronic viral hepatitis C; Z86.11 Personal history of tuberculosis
CPT/HCPCS: 36415; 80053; 80305; 80307; 81025; 82140; 85027; 86780; 93005; 93010

== ENCOUNTER 2023-09-09 11:41 | Inpatient (IN) | payer OTHER ==
[2023-09-09 13:25] VITALS: BMI 28.0
[2023-09-09] MEDS ORDERED: POLYETHYLENE GLYCOL (HEALTHYLAX) 3350 17 GM PACKET PO PRN (13:40)
[2023-09-09] MEDS ORDERED: IBUPROFEN 600 MG TABLET (FP) PO PRN (13:40)
[2023-09-09] MEDS ORDERED: BISMUTH SUBSALICYLATE 524 MG/30 ML PO PRN (13:40)
[2023-09-09] MEDS ORDERED: MAG HYDROX/AL HYDROX/SIMETH 30 ML UNIT-DOSE CUP PO PRN (13:40)
[2023-09-09] MEDS ORDERED: IBUPROFEN 400 MG TABLET (FP) PO PRN (13:40)
[2023-09-09] MEDS ORDERED: ACETAMINOPHEN 325 MG TABLET (FP) PO PRN (13:40)
[2023-09-09] MEDS ORDERED: MAGNESIUM HYDROX 2400MG/30ML ORAL SUSPENSION 30 ML CUP PO PRN (13:40)
[2023-09-09] MEDS ORDERED: LOPERAMIDE HCL 2 MG CAPSULE PO PRN (13:40)
[2023-09-09] MEDS ORDERED: hydrOXYzine PAMOATE 25 MG CAPSULE (FP) PO PRN (13:40)
[2023-09-09] MEDS: ONDANSETRON *ODT* 4 MG TABLET SL PRN (20:00)
[2023-09-09] MEDS: DICYCLOMINE HCL 10 MG CAPSULE PO PRN (20:00)
[2023-09-09] MEDS: METHOCARBAMOL 500 MG TABLET PO PRN (20:27)
[2023-09-09] MEDS: diazePAM 5 MG TABLET PO PRN (20:27)
[2023-09-09] MEDS: THIAMINE 100 MG TABLET PO SCH (22:40)
[2023-09-09] MEDS: MELATONIN 5 MG TABLETS PO SCH (22:40)
[2023-09-09] MEDS: diazePAM 5 MG TABLET PO SCH (22:41)
[2023-09-10] MEDS: PRENATAL VITAMINS W/ FOLIC ACID TABLET (FP) PO SCH (10:07)
[2023-09-10] MEDS: NICOTINE 7 MG/24 HOURS TOPICAL PATCH TD SCH (10:07)
[2023-09-10] MEDS: BENZOCAINE/MENTHOL (CHLORASEPTIC ) LOZENGE MM PRN (10:07)
[2023-09-10] MEDS: NICOTINE POLACRILEX 2 MG GUM BUC PRN (10:08)
[2023-09-10 12:44] LABS: BASO % 1.4 % (0-2.0); EOS % 9.6 % (0-4.5); HEMATOCRIT 39.2 % (32.4-45.2); HEMOGLOBIN 12.9 GM/dL (10.7-15.3); LYMPH % 30.7 % (8-40); MCH 29.1 pg (25.7-33.7); MEAN CELL VOLUME 88.1 fl (80-96); MEAN PLT VOLUME 9.7 fl (7.5-11.1); MONO % 9.4 % (3.8-10.2); NEUT % 48.9 % (42.8-82.8); PLATELET COUNT 188 10^3/uL (134-434); RBC 4.45 M/mm3 (3.60-5.2); RDW 15.1 % (11.6-15.6); WHITE BLOOD COUNT 4.5 K/mm3 (4.0-10.0)
[2023-09-10 14:06] LABS: CHLORIDE 108 mmol/L (98-107); POTASSIUM 4.3 mmol/L (3.5-5.1); SODIUM 141 mmol/L (136-145)
[2023-09-10 14:07] LABS: CALCIUM 8.7 mg/dL (8.5-10.1)
[2023-09-10 14:08] LABS: ANION GAP 7 mmol/L (4-13); BLOOD UREA NITROGEN 12.8 mg/dL (7-18); CO2 26 mmol/L (21-32); GLUCOSE,RANDOM 112 mg/dL (74-106)
[2023-09-10 14:11] LABS: CREATININE 0.8 mg/dL (0.55-1.3)
[2023-09-10] MEDS: BENZONATATE 200 MG CAPSULE PO PRN (22:08)
[2023-09-11] MEDS: diazePAM 5 MG TABLET PO SCH (05:50)
[2023-09-11] MEDS: guaiFENesin 600 MG TABLET.ER (FP) PO PRN (22:06)
[2023-09-12] MEDS: diazePAM 5 MG TABLET PO SCH (05:48)
[2023-09-13] MEDS: diazePAM 5 MG TABLET PO ONE (05:45)
[2023-09-13 09:12] VITALS: BP 107/62; PULSE 88; RESP 18; TEMP 97.3
== END 2023-09-13 09:32 | disposition home or self-care (01) | DRG 774 ==
LOC: YASAS 11:41 → Y6N 14:43 → Y3N 16:19 → UNDODISIN 09-12 16:16
PROVIDERS: ADMIT Allergy & Immunology; ATTEND Surgery
PROC: HZ2ZZZZ Detoxification Services for Substance Abuse Treatment (ICD-10-PCS; principal; 2023-09-09)
DX: F10.230 Alcohol dependence with withdrawal, uncomplicated (principal); F14.20 Cocaine dependence, uncomplicated; F12.20 Cannabis dependence, uncomplicated; F17.210 Nicotine dependence, cigarettes, uncomplicated; F41.9 Anxiety disorder, unspecified; F32.A Depression, unspecified; F43.10 Post-traumatic stress disorder, unspecified; G62.9 Polyneuropathy, unspecified; B18.2 Chronic viral hepatitis C; K21.9 Gastro-esophageal reflux disease without esophagitis
CPT/HCPCS: 36415; 80048; 80305; 80307; 81025; 85025; 86780; Q0162

== ENCOUNTER 2023-11-29 12:10 | Inpatient (IN) | payer OTHER ==
[2023-11-29 13:23] VITALS: BMI 27.3
[2023-11-29] MEDS ORDERED: NALOXONE HCL 0.4 MG/ML VIAL IM PRN (14:36)
[2023-11-29] MEDS ORDERED: NICOTINE POLACRILEX 2 MG GUM BUC PRN (14:36)
[2023-11-29] MEDS ORDERED: IBUPROFEN 400 MG TABLET (FP) PO PRN (14:36)
[2023-11-29] MEDS ORDERED: NALOXONE (NARCAN) HCL 4 MG/0.1 ML SPRAY NS PRN (14:36)
[2023-11-29] MEDS ORDERED: LOPERAMIDE HCL 2 MG CAPSULE PO PRN (14:36)
[2023-11-29] MEDS ORDERED: MAGNESIUM HYDROX 2400MG/30ML ORAL SUSPENSION 30 ML CUP PO PRN (14:36)
[2023-11-29] MEDS ORDERED: DICYCLOMINE HCL 10 MG CAPSULE PO PRN (14:36)
[2023-11-29] MEDS ORDERED: ACETAMINOPHEN 325 MG TABLET (FP) PO PRN (14:36)
[2023-11-29] MEDS ORDERED: BENZONATATE 200 MG CAPSULE PO PRN (14:36)
[2023-11-29] MEDS ORDERED: POLYETHYLENE GLYCOL (HEALTHYLAX) 3350 17 GM PACKET PO PRN (14:36)
[2023-11-29] MEDS ORDERED: hydrOXYzine PAMOATE 25 MG CAPSULE (FP) PO PRN (14:36)
[2023-11-29] MEDS ORDERED: BISMUTH SUBSALICYLATE 262 MG/15 ML BTL PO PRN (14:36)
[2023-11-29] MEDS: BENZOCAINE/MENTHOL (CHLORASEPTIC ) LOZENGE MM PRN (16:33)
[2023-11-29] MEDS: guaiFENesin 600 MG TABLET.ER (FP) PO PRN (16:33)
[2023-11-29] MEDS: IBUPROFEN 600 MG TABLET (FP) PO PRN (22:16)
[2023-11-29] MEDS: METHOCARBAMOL 500 MG TABLET PO PRN (22:16)
[2023-11-29] MEDS: MELATONIN 5 MG TABLETS PO SCH (22:17)
[2023-11-29] MEDS: THIAMINE 100 MG TABLET PO SCH (22:17)
[2023-11-30] MEDS ORDERED: diazePAM 5 MG TABLET PO PRN (09:17)
[2023-11-30] MEDS: PRENATAL VITAMINS W/ FOLIC ACID TABLET (FP) PO SCH (10:09)
[2023-11-30] MEDS: diazePAM 5 MG TABLET PO SCH (10:09)
[2023-11-30] MEDS: NICOTINE 21 MG/24 HOURS TOPICAL PATCH TD SCH (10:09)
[2023-11-30] MEDS: ONDANSETRON *ODT* 4 MG TABLET SL PRN (10:10)
[2023-11-30] MEDS: buPROPion HCL 75 MG TABLET PO SCH (10:35)
[2023-11-30] MEDS: MAG HYDROX/AL HYDROX/SIMETH 30 ML UNIT-DOSE CUP PO PRN (22:08)
[2023-12-01 06:50] VITALS: RESP 18
[2023-12-01 13:22] VITALS: BP 120/71; PULSE 74; TEMP 97.8
[2023-12-02] MEDS ORDERED: diazePAM 5 MG TABLET PO SCH (06:00)
[2023-12-03] MEDS ORDERED: diazePAM 5 MG TABLET PO SCH (06:00)
[2023-12-04] MEDS ORDERED: diazePAM 5 MG TABLET PO ONE (06:00)
== END 2023-12-01 13:31 | disposition left against medical advice (07) | DRG 770 ==
LOC: YASAS 12:10 → Y3N 15:43
PROVIDERS: ADMIT Allergy & Immunology; ATTEND Surgery
PROC: HZ2ZZZZ Detoxification Services for Substance Abuse Treatment (ICD-10-PCS; principal; 2023-11-29)
DX: F11.23 Opioid dependence with withdrawal (principal); F10.230 Alcohol dependence with withdrawal, uncomplicated; F14.20 Cocaine dependence, uncomplicated; F12.20 Cannabis dependence, uncomplicated; F17.210 Nicotine dependence, cigarettes, uncomplicated; F41.9 Anxiety disorder, unspecified; F32.A Depression, unspecified; F43.10 Post-traumatic stress disorder, unspecified; K21.9 Gastro-esophageal reflux disease without esophagitis; B18.2 Chronic viral hepatitis C; R76.11 Nonspecific reaction to tuberculin skin test without active tuberculosis
CPT/HCPCS: 80305; 81025; 93005; 93010; Q0162